=== PATIENT | female | born 1940 | race Hispanic/Latino ===

== ENCOUNTER 2018-01-09 19:13 | Observation (INO) | payer MEDICARE ==
[2018-01-09 20:05] LABS: BASO # 0.15 K/mm3 (0.0-2.0); BASO % 2.8 % (0.0-3.0); EOS # 0.2 (0.0-0.7); EOS % 4.4 % (1.5-5.0); GRAN # 3.16 (1.4-6.5); GRAN % 58.1 % (50.0-68.0); HEMOGLOBIN 10.6 g/dL (12.0-16.0); LYMPH # 1.4 (1.2-3.4); MEAN CELL VOLUME 90.8 fl (80.0-105.0); MEAN CORPUSCULAR HEMOGLOBIN 29.4 pg (25.0-35.0); MEAN CORPUSCULAR HGB CONC 32.4 g/dl (31.0-37.0); MEAN PLATELET VOLUME 8.6 fl (7.0-11.0); MONO # 0.5 (0.1-0.6); MONO % 8.7 % (1.0-6.0); RBC 3.6 10^6/uL (3.5-6.1); RED CELL DISTRIBUTION WIDTH 13.7 % (11.5-14.5); WHITE BLOOD COUNT 5.4 10^3/ul (4.5-11.0)
[2018-01-09 20:14] LABS: ALB/GLOB RATIO 1.7 (1.1-1.8); ALBUMIN 4.7 g/dL (3.0-4.8); CALCIUM 8.7 mg/dL (8.4-10.5)
[2018-01-09] MEDS ORDERED: Sod Polystyrene Sulf 15 gm/60 ml Susp PO STA (20:43)
[2018-01-09] MEDS ORDERED: Iohexol 240 (50 ml) ONE (20:48)
[2018-01-09] MEDS: Sodium Chloride 0.9% 1,000 ML IV SCH (21:00)
--- NOTE | 2018-01-09 21:43 | ED PDOC ---
Arrival/HPI - General Chief Complaint: Abnormal Labs Time Seen by Provider: 01/09/18 19:15 Historian: Patient - History of Present Illness Narrative History of Present Illness (Text): 01/09/18 20:33 77 year old female, whose past medical history includes Hypercholesterolemia and Hypertension, presents to the emergency department complaining of abnormal lab results. Patient was sent by Dr. Thibodeaux for elevated creatinine and potassium. Patient has no physical complaints. Patient denies any fever, chills , chest pain, shortness of breath, abdominal pain, nausea, vomiting, diarrhea, urinary symptoms, back pain, neck pain, headache, dizziness, or any other complaints. Symptom Onset: Gradual Symptom Course: Unchanged Activities at Onset: Light Context: Home Past Medical History - Provider Review Nursing Documentation Reviewed: Yes - Infectious Disease Hx of Infectious Diseases: None - Tetanus Immunization Tetanus Immunization: Unknown - Cardiac Hx Hypotension: Yes - Musculoskeletal/Rheumatological Hx Gout: Yes - Psychiatric Hx Psychophysiologic Disorder: No Hx Depression: No Hx Emotional Abuse: No Hx Physical Abuse: No Hx Substance Use: No - Surgical History Hx Orthopedic Surgery: Yes - Suicidal Assessment Feels Threatened In Home Enviroment: No Family/Social History - Physician Review Nursing Documentation Reviewed: Yes Family/Social History: No Known Family HX Smoking Status: Never Smoked Hx Alcohol Use: No Hx Substance Use: No Hx Substance Use Treatment: No Allergies/Home Meds Allergies/Adverse Reactions: Allergies No Known Allergies Allergy (Verified 07/21/15 14:52) Home Medications: Home Meds Medication Instructions Recorded Confirmed Amlodipine/Valsartan/Hcthiazid 1 tab PO DAILY 01/09/18 01/09/18 [[id number] 5-160-25 mg] Febuxostat [Uloric] 1 tab PO DAILY 01/09/18 01/09/18 Tramadol HCl [Ultram] 1 tab PO PRN PRN 01/09/18 01/09/18 cloNIDine [Catapres] 1 tab PO BID 01/09/18 01/09/18 Review of Systems - Physician Review All systems were reviewed & negative as marked: Yes - Review of Systems Constitutional: absent: Fevers, Other (Chills) Respiratory: absent: SOB Cardiovascular: absent: Chest Pain Gastrointestinal: absent: Abdominal Pain, Diarrhea, Nausea, Vomiting Genitourinary Female: absent: Dysuria, Frequency, Hematuria Musculoskeletal: absent: Back Pain, Neck Pain Neurological: absent: Headache, Dizziness Physical Exam Vital Signs Reviewed: Yes Vital Signs Temp Pulse Resp BP Pulse Ox 01/09/18 21:26 80 14 148/79 99 01/09/18 19:21 97.9 F 92 H 18 150/86 99 Temperature: Afebrile Blood Pressure: Normal Pulse: Regular Respiratory Rate: Normal Appearance: Positive for: Well-Appearing, Non-Toxic, Comfortable Pain Distress: None Mental Status: Positive for: Alert and Oriented X 3 - Systems Exam Head: Present: Atraumatic, Normocephalic Pupils: Present: PERRL Extroacular Muscles: Present: EOMI Conjunctiva: Present: Normal Mouth: Present: Moist Mucous Membranes Neck: Present: Normal Range of Motion Respiratory/Chest: Present: Clear to Auscultation, Good Air Exchange. No: Respiratory Distress, Accessory Muscle Use Cardiovascular: Present: Regular Rate and Rhythm, Normal S1, S2. No: Murmurs Abdomen: No: Tenderness, Distention, Peritoneal Signs Back: Present: Normal Inspection Upper Extremity: Present: Normal Inspection. No: Cyanosis, Edema Lower Extremity: Present: Normal Inspection. No: Edema Neurological: Present: GCS=15, CN II-XII Intact, Speech Normal Skin: Present: Warm, Dry, Normal Color. No: Rashes Psychiatric: Present: Alert, Oriented x 3, Normal Insight, Normal Concentration Medical Decision Making ED Course and Treatment: 01/09/18 20:33 Impression: 77 year old female sent by Dr. Thibodeaux for elevated creatinine and potassium. Plan: -- CT Abd & Pelvis PO Contrast -- EKG -- Labs -- IV Fluids, KayeXalate Susp -- Reassess and disposition Progress Notes: 01/09/18 21:05 EKG: Ordered, reviewed, and independently interpreted the EKG. Rate : 83 BPM Rhythm : NSR Interpretation : Normal axis. Normal intervals. Comparison : No previous EKG for comparison. 01/09/18 20:[address] Thibodeaux and Dr. Pierce Quispe who are aware and agrees with the plan. Reviewed the work up with Dr. Thibodeaux who is requesting CT abdomen with PO Contrast. Patient to be admitted for acute renal renal failure dehydration. EXAM: CT Abdomen and Pelvis Without Intravenous Contrast Dictated and Authenticated by: Jayla Pimentel MD 01/09/2018 10:43 PM IMPRESSION: Gallstones, no ductal dilatation; no acute solid visceral abnormality; diverticulosis without CT findings of diverticulitis; possible left ovarian dermoid Additional nonemergent findings as described above. - Lab Interpretations Lab Results: 01/09/18 19:58 01/09/18 19:58 Lab Results 01/09/18 19:58: Sodium 143, Potassium 5.3 H, Chloride 111 H, Carbon Dioxide 16 L , Anion Gap 22 H, BUN 51 H, Creatinine 2.8 H, Est GFR ( Amer) 20, Est GFR (Non-Af Amer) 16, Random Glucose 111 H, Calcium 8.7, Total Bilirubin 0.4, AST 15, ALT 20, Alkaline Phosphatase 91, Total Protein 7.4, Albumin 4.7, Globulin 2.7, Albumin/Globulin Ratio 1.7 01/09/18 19:58: WBC 5.4, RBC 3.60, Hgb 10.6 L, Hct 32.7 L, MCV 90.8, MCH 29.4, MCHC 32.4, RDW 13.7, Plt Count 325, MPV 8.6, Gran % 58.1, Lymph % (Auto) 26.0, [place] % (Auto) 8.7 H, Eos % (Auto) 4.4, Baso % (Auto) 2.8, Gran # 3.16, Lymph # ( Auto) 1.4, [place] # (Auto) 0.5, Eos # (Auto) 0.2, Baso # (Auto) 0.15 I have reviewed the lab results: Yes - RAD Interpretation Radiology Orders: 01/09/18 20:43 ABD & PELVIS PO CONTRAST ONLY [CT] Stat - EKG Interpretation Interpreted by ED Physician: Yes Type: 12 lead EKG - Medication Orders Current Medication Orders: Sodium Chloride (Sodium Chloride 0.9%) 1,000 mls @ 125 mls/hr IV .Q8H MARIN Last Admin: 01/09/18 21:00 Dose: 125 mls/hr eMAR Start Stop Document 01/09/18 21:00 RG (Rec: 01/09/18 21:23 RG [id number]) Intravenous Solution Start Date 01/09/18 Start Time 21:00 Discontinued Medications Sodium Polystyrene Sulfonate (Kayexalate Susp) 15 gm PO STAT STA Stop: 01/09/18 20:44 Last Admin: 01/09/18 21:04 Dose: 15 gm - Scribe Statement The provider has reviewed the documentation as recorded by the Shawn Sanchez Provider Scribe Attestation: All medical record entries made by the Shermanibjacinto were at my direction and personally dictated by me. I have reviewed the chart and agree that the record accurately reflects my personal performance of the history, physical exam, medical decision making, and the department course for this patient. I have also personally directed, reviewed, and agree with the discharge instructions and disposition. Disposition/Present on Arrival - Present on Arrival Any Indicators Present on Arrival: No History of DVT/PE: No History of Uncontrolled Diabetes: No Urinary Catheter: No History of Decub. Ulcer: No History Surgical Site Infection Following: None - Disposition Have Diagnosis and Disposition been Completed?: Yes Diagnosis: Dehydration, Acute renal failure Disposition: HOSPITALIZED Disposition Time: 20:30 Condition: STABLE
--- NOTE | 2018-01-09 22:43 | CT ---
EXAM: CT Abdomen and Pelvis Without Intravenous Contrast EXAM DATE/TIME: 01/09/2018 8:43 PM CLINICAL HISTORY: 77 years old, female; Pain; Abdominal pain; Acute; Additional info: Difficulty swallowing TECHNIQUE: Axial computed tomography images of the abdomen and pelvis without intravenous contrast. All CT scans at this facility use one or more dose reduction techniques, viz.: automated exposure control; ma/kV adjustment per patient size (including targeted exams where dose is matched to indication; i.e. head); or iterative reconstruction technique. Coronal and sagittal reformatted images were created and reviewed. COMPARISON: There are no prior studies for comparison. FINDINGS: Lung bases: See below. Heart: Heart size is normal. There are coronary artery calcifications. Lung bases are hyperinflated. There is scarring at the lung bases ABDOMEN: Liver: unremarkable Gallbladder and bile ducts: Gallbladder is partially distended. There are small gallstones. Common duct is unremarkable. Pancreas: Pancreas is mildly atrophic. Spleen: unremarkable Adrenals: unremarkable Kidneys and ureters: There is bilateral renal scarring. There is no pelvocaliectasis or ureterectasis. Stomach and bowel: Stomach is distended with contrast and food. Rotation is normal. There is contrast fluid and air throughout much of the small bowel. Terminal ileum is unremarkable. Visualized portion of the appendix is unremarkable.Colon is incompletely distended which limits evaluation.There is diverticulosis. PELVIS: Appendix: See stomach and bowel Bladder: Bladder is partially distended. Reproductive: Uterus is atrophic. There is prominence of both adnexa. There may be a left adnexal dermoid. ABDOMEN and PELVIS: Intraperitoneal space: There is no free air or free fluid. Bones/joints: There are degenerative changes in the osseus structures. Soft tissues: There is a small fat containing umbilical hernia. Vasculature: Clinical phleboliths aorta is mildly tortuous. There are calcifications in the aorta and iliacs. Lymph nodes: unremarkable IMPRESSION: Gallstones, no ductal dilatation; no acute solid visceral abnormality; diverticulosis without CT findings of diverticulitis; possible left ovarian dermoid Additional nonemergent findings as described above.
[2018-01-10 06:06] VITALS: BMI 13.6
[2018-01-10] MEDS: FEBUXOSTAT PO SCH (09:07)
[2018-01-10 11:44] LABS: BASO # 0.13 K/mm3 (0.0-2.0); BASO % 3.1 % (0.0-3.0); EOS # 0.2 (0.0-0.7); EOS % 5.2 % (1.5-5.0); GRAN # 2.44 (1.4-6.5); GRAN % 57.9 % (50.0-68.0); HEMOGLOBIN 10.4 g/dL (12.0-16.0); LYMPH # 1.1 (1.2-3.4); LYMPH % 26.4 % (22.0-35.0); MEAN CELL VOLUME 90.1 fl (80.0-105.0); MEAN CORPUSCULAR HEMOGLOBIN 28.7 pg (25.0-35.0); MEAN CORPUSCULAR HGB CONC 31.9 g/dl (31.0-37.0); MEAN PLATELET VOLUME 8.7 fl (7.0-11.0); MONO # 0.3 (0.1-0.6); MONO % 7.4 % (1.0-6.0); RBC 3.62 10^6/uL (3.5-6.1); RED CELL DISTRIBUTION WIDTH 13.4 % (11.5-14.5); WHITE BLOOD COUNT 4.2 10^3/ul (4.5-11.0)
[2018-01-10 11:57] LABS: ALB/GLOB RATIO 1.5 (1.1-1.8); ALBUMIN 4.2 g/dL (3.0-4.8); CALCIUM 7.8 mg/dL (8.4-10.5)
--- NOTE | 2018-01-10 12:36 | CARD ---
APPROVED REPORT EKG Measurement Heart [id number] <Conclusion> Normal sinus rhyth
[2018-01-10] MEDS ORDERED: Sod Polystyrene Sulf 15 gm/60 ml Susp PO ONE (14:08)
[2018-01-10 18:05] LABS: HEMOGLOBIN 10.5 g/dL (12.0-16.0); MEAN CELL VOLUME 89.7 fl (80.0-105.0); MEAN CORPUSCULAR HEMOGLOBIN 29.3 pg (25.0-35.0); MEAN CORPUSCULAR HGB CONC 32.7 g/dl (31.0-37.0); MEAN PLATELET VOLUME 8.5 fl (7.0-11.0); RBC 3.58 10^6/uL (3.5-6.1); RED CELL DISTRIBUTION WIDTH 13.4 % (11.5-14.5); WHITE BLOOD COUNT 4.1 10^3/ul (4.5-11.0)
[2018-01-10] MEDS: Sodium Chloride 0.9% 1,000 ML IV SCH (18:38)
[2018-01-10 18:47] LABS: URINE BILIRUBIN NEGATIVE (NEGATIVE); URINE BLOOD TRACE-INTACT (NEGATIVE); URINE GLUCOSE (UA) NEGATIVE (NEGATIVE); URINE LEUKOCYTE ESTERASE NEGATIVE Leu/uL (NEGATIVE); URINE PROTEIN 100 mg/dL (<30 mg/dL); URINE UROBILINOGEN 0.2 E.U./dL (<1 E.U./dL)
[2018-01-10 18:50] LABS: URINE APPEARANCE CLEAR (CLEAR); URINE COLOR YELLOW (YELLOW)
[2018-01-10 18:58] LABS: URINE EPITHELIAL CELLS 0 - 2 /hpf (0-5); URINE RBC 0 - 2 /hpf (0-2); URINE WBC NEGATIVE /hpf (0-6)
--- NOTE | 2018-01-10 23:27 | HP ---
DATE OF EXAM: HISTORY OF PRESENT ILLNESS: The patient is a 77-year-old female who was being evaluated by the correction officer, Dr. Thibodeaux, and she was found to have elevated renal functions on her blood work. Therefore, it is recommended she present to the emergency room, which she did not. She is further evaluated and admitted with a diagnosis of acute renal failure. The patient is completely asymptomatic. She denies using any chemical. She denies any urinary symptoms of hematuria, dysuria, frequency, or urgency. PAST MEDICAL HISTORY: The patient has a past medical history positive for hypertension and for gout. SOCIAL HISTORY: She never smoked. She is a nonalcoholic drinker. ALLERGIES: SHE HAS NO KNOWN MEDICAL ALLERGIES. MEDICATIONS: On admission included Uloric one tablet p.o. daily, tramadol 50 mg as needed for pain, clonidine 0.1 mg twice a day, Exforge which is amlodipine 5 mg, valsartan 160 mg, and hydrochlorothiazide 25 mg. PHYSICAL EXAMINATION: GENERAL: The patient is awake, alert, and oriented. VITAL SIGNS: Her blood pressure is 150/86, heart rate is 92 beats per minute, and she is afebrile at 92.9 degrees Fahrenheit. HEAD, EYES, EARS, NOSE AND THROAT: Unremarkable. NECK: Supple with no lymphadenopathy. No goiter. LUNGS: Clear to auscultation and percussion. HEART: Regular. No murmurs are appreciated. ABDOMEN: Soft and nontender with no organomegaly. EXTREMITIES: Free of cyanosis, clubbing, or edema. NEUROLOGICALLY: The patient is awake, alert, and oriented with no focal neurological signs. LABORATORY STUDIES: Reveal the white blood cell count to be 5.4, hemoglobin is 10.6, hematocrit 32.7, platelet count is 325. Sodium is 143, potassium is elevated at 5.3, chloride is high at 111, bicarb is low at 16, blood urea nitrogen is elevated at 51, creatinine is 2.8, nonfasting glucose is 111. EKG shows regular sinus rhythm. The CAT scan of the abdomen shows gallbladder calculi, diverticulosis without diverticulitis. There is a possible left ovarian dermoid cyst. IMPRESSION AND PLAN: So, the patient is admitted with a diagnosis of acute renal failure. She received Kayexalate 15 mg in the emergency room. She is receiving IV normal saline at 125 mL an hour. The patient is to be reevaluated in the morning and laboratory studies to be repeated. Pierce Quispe MD
--- NOTE | 2018-01-11 02:04 | PN ---
DATE: 01/10/2018 DAILY PROGRESS NOTE I would like today's progress note to be read as follows, if you would be so kind. SUBJECTIVE: The patient is a 77-year-old female with a history of high blood pressure and gout, which was treated as an outpatient with clonidine, Exforge and Uloric, who was found to be on acute renal failure with an elevated blood urea nitrogen of 51 and creatinine of 2.8. She was therefore asked to present to the emergency room where she was evaluated and admitted. She received 15 mg of Kayexalate and had IV fluids normal saline running at 125 mL and hour overnight. By the following morning, unfortunately, her labs have not changed as much as expected. Her potassium this morning is 5.1. Blood urea nitrogen is 43 and creatinine is 2.1. The patient is awake, alert and oriented. She is sitting up on a chair. She is totally asymptomatic. So at this point, we will continue with IV fluids at 125 mL an hour. We will treat her with another 30 mg of Kayexalate and we will ask nephrologists, Dr. Currie and Dr. Ca, to evaluate the patient. Urinalysis is ordered and the patient is to be reevaluted in the morning. Pierce Quispe MD
[2018-01-11] MEDS: FEBUXOSTAT PO SCH (09:35)
[2018-01-11 11:53] LABS: HEMOGLOBIN 9.7 g/dL (12.0-16.0); MEAN CORPUSCULAR HEMOGLOBIN 29.5 pg (25.0-35.0); MEAN CORPUSCULAR HGB CONC 32.8 g/dl (31.0-37.0); MEAN PLATELET VOLUME 8.5 fl (7.0-11.0); RBC 3.29 10^6/uL (3.5-6.1); RED CELL DISTRIBUTION WIDTH 13.5 % (11.5-14.5); WHITE BLOOD COUNT 4.5 10^3/ul (4.5-11.0)
[2018-01-11 12:06] LABS: IRON 71 ug/dL (45-180)
--- NOTE | 2018-01-11 12:06 | US ---
PROCEDURE: Ultrasound of the Kidneys HISTORY: Kidney size and r/o hydronephrosis COMPARISON: Comparison made with CT scan abdomen pelvis 01/09/2018. TECHNIQUE: Sonogram of the kidneys. FINDINGS: RIGHT KIDNEY: Measures: 9.7 x 4.8 x 5.5 cm. Normal in size, contour and echogenicity. No stone, solid mass lesion or hydronephrosis visualized. LEFT KIDNEY: Measures: 9.0 x 3.7 x 4.8 cm. Normal in size and echogenicity. Localized cortical volume loss posterolateral aspect upper/midpole left kidney likely related to prior inflammation. Clinical correlation recommended. These changes are seen to better advantage on prior CT scan No stone, solid mass lesion or hydronephrosis visualized. . OTHER FINDINGS: None. IMPRESSION: No evidence of nephrolithiasis or hydronephrosis. No obvious renal masses or collections. . Localized cortical volume loss posterolateral aspect upper/midpole left kidney likely related to prior inflammation. Clinical correlation recommended. Changes are seen to better advantage on prior CT scan
[2018-01-11 12:15] LABS: % IRON SATURATION 28 % (20-55); TOTAL IRON BINDING CAPACITY 256 ug/dL (265-497)
[2018-01-11] MEDS: Sodium Bicarbonate 8.4% 50 MEQ in Dextrose 5%/0.45% NS 1,000 ML IV SCH ×2 (12:28→23:20)
[2018-01-11 17:09] LABS: FERRITIN 48.2 ng/mL
[2018-01-11 17:39] LABS: FOLATE 12.8 ng/mL
--- NOTE | 2018-01-11 20:59 | CON ---
DATE: 01/11/2018 The patient admitted for Dr. Pierce Quispe. REFERRING PHYSICIAN: Pierce Quispe MD. REASON FOR CONSULTATION: Evaluation of a patient unknown to me who presents with an elevated BUN and creatinine in the setting of a 2-week history of diarrhea. HISTORY OF PRESENT ILLNESS: The patient is a 77-year-old white female with a long history of hypertension, perhaps hypertensive nephrosclerosis, history of gout, history of anemia who presents with a 2-week history of diarrhea. The patient had been evaluated by her buffing wheel former automatic. Labs were done which showed an elevated BUN and creatinine with mild hyperkalemia and the patient is referred to the hospital for evaluation. By history, the patient states that she was told that she had weakness in her kidney dating back at least 1-2 years. Of note, an abdominal CT scan done on the day of admission, showed bilateral renal scarring. The patient states that she did have discussions with her doctors in the past about the weakness in her kidney. She states that the diarrhea had resolved. She states that she did have a colonoscopy. We were asked to evaluate the patient for elevated BUN and creatinine. Her BUN on admission was 51 with a creatinine of 2.8. We do not know what her baseline is. Today's BUN is 43 with a creatinine of 2.1, on IV fluid hydration. With hydration, her hemoglobin has dropped from 10.6 down to 10.4-10.5 range. Her urinalysis shows 2+ protein. 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 MEDICATIONS AT HOME: Include that of clonidine, Ultram, amlodipine with valsartan and hydrochlorothiazide, Uloric. ALLERGIES: NO KNOWN ALLERGIES TO MEDICATIONS. CURRENT MEDICATIONS IN HOSPITAL: Include that of clonidine; Uloric; hydrochlorothiazide, which will be discontinued; Norvasc; normal saline 125 mL an hour; and Ultram. SOCIAL HISTORY: Past history of cigarette smoking. The patient has not been smoking for many years. No history of alcohol use. FAMILY HISTORY: Father of reasons unknown to the patient. Mother of complications of COPD. REVIEW OF SYSTEMS: GENERAL: The patient states appetite and weight have been stable. HEENT: Denies any hearing or visual problems. PULMONARY: No history of shortness of breath, COPD, asthma, bronchitis, emphysema, or pneumonia. CARDIAC: No history of ASHD. GASTROINTESTINAL: History of diarrhea of 2 weeks' duration. No history of abdominal pain, nausea, vomiting, or constipation. GENITOURINARY: No history of urinary tract infections. GYNECOLOGIC: Postmenopausal. ENDOCRINE: No history of diabetes. MUSCULOSKELETAL: Positive history of gout. NEUROLOGIC: No history of CVA, TIA, seizures, or syncope. HEMATOLOGIC-ONCOLOGIC: History of anemia as noted above. PSYCHIATRIC: History is negative. PHYSICAL EXAMINATION: GENERAL: The patient is currently seen on 2R. She is comfortable lying supine in bed. Her son is in the room. VITAL SIGNS: Blood pressure is ranging from 143-164 systolic with diastolics ranging from 66-74. Temperature 98.1, respiratory rate is 20 with a pulse of 63. HEENT: Shows her be normocephalic, atraumatic. Conjunctiva are pink. Sclerae are nonicteric. Pupils are equal, reactive to light and accommodation. Extraocular muscles are intact. Posterior pharynx is normal. NECK: Supple. No neck vein distention. No thyromegaly. No lymphadenopathy. No bruits. CHEST: Clear to auscultation and percussion. No rales, rhonchi, or wheezing. CARDIOVASCULAR: Shows a regular rate and rhythm without audible murmurs, rubs, or gallops. ABDOMEN: Soft. Bowel sounds normal. No rebound, guarding, or masses. BACK: No CVAT. No spinal tenderness. EXTREMITIES: Show no lower extremity cyanosis, clubbing, or edema. Distal lower extremity pulses are 1 to 2+. NEUROLOGIC: Shows her to be alert, oriented x3 with no gross focal motor or sensory deficits noted. LABORATORY DATA AND IMAGING: Admitting EKG showed a normal sinus rhythm. Admitting urinalysis showed 2+ protein. Admitting abdominal CT scan, kidneys showed bilateral renal scarring. Gallstones were present. No evidence for diverticulitis. Positive diverticulosis. CBC: White blood cell count 4.1, hemoglobin 10.5 with a platelet count of 282,000. Chemistries showed a sodium of 147; potassium was 5.3, today it is 5.1; chloride 115 with a CO2 of 18. BUN is 43 with a creatinine of 2.1. Glucose 69. Calcium 7.8 with an albumin of 4.2. Today's labs are pending. Urine showed 2+ protein. Otherwise unremarkable. ASSESSMENT: 1. 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 By patient's history and by CT scan findings, it appears that the patient has a degree of chronic renal disease. She has bilateral renal scarring. She did have a discussion with her doctors in the last year about weakness in her kidney. The patient avoids all anti-inflammatories. Of note, she remains on an angiotensin receptor chucky and a diuretic in the outpatient setting for blood pressure control. Discussed with the patient and her son in detail. I will obtain a renal ultrasound to measure her kidney size. I will obtain a renal artery Doppler study in light of her history of hypertension and chronic kidney disease to rule out renal artery stenosis. I will obtain 24-hour urines for creatinine clearance and protein. It would be very important to try and obtain from the outpatient labs her baseline BUN and creatinine, I will discuss this with Dr. Quispe. The patient and her son do not remember what her outpatient BUN and creatinine were. 2. History of hypertension. In light of her borderline hyperkalemia, we will hold an angiotensin receptor chucky at this point in time and I will hold hydrochlorothiazide as the patient remains on IV fluid hydration. She can continue calcium channel chucky therapy and we can use clonidine on a p.r.n. basis to keep her blood pressure controlled. 3. History of gout. The patient will continue on Uloric. We will check a uric acid level. 4. History of anemia. We will check her iron saturations, B12, and folate. If hemoglobin drops below 10, perhaps Aranesp administration together with oral iron supplements. 5. History of diarrhea. The patient had been evaluated by GI. This seems to have resolved. Her son thinks that she eats spoiled food that she keeps in refrigerator for long periods of time. Apparently, the patient had a recent GI workup, which according to the patient and her son were negative. PLAN: 1. A 24-hour urine for creatinine clearance and protein. 2. Renal ultrasound ordered. 3. Continue renal diet, low potassium diet. 4. Use calcium channel chucky therapy together with clonidine for blood pressure control. Hold the angiotensin receptor chucky until she returns to baseline levels and potassium level improves. 5. Continue IV fluid hydration. Her CO2 level has dropped down to 16-18. I will add sodium bicarbonate to the IV fluids instead of chloride as this will likely help improve her potassium level and neutralize her metabolic acidosis. 6. Continue to follow daily labs. 7. Discussed with the patient and her son in detail. 8. Close renal followup during hospitalization and perhaps renal followup in the outpatient setting. Thank you for letting me partake and share in the care of your patient. Casimiro Ca MD MTDD
[2018-01-12 07:07] LABS: HEMOGLOBIN 9.7 g/dL (12.0-16.0); MEAN CELL VOLUME 89.4 fl (80.0-105.0); MEAN CORPUSCULAR HEMOGLOBIN 29.4 pg (25.0-35.0); MEAN CORPUSCULAR HGB CONC 32.9 g/dl (31.0-37.0); MEAN PLATELET VOLUME 8.5 fl (7.0-11.0); RBC 3.3 10^6/uL (3.5-6.1); RED CELL DISTRIBUTION WIDTH 13.4 % (11.5-14.5); WHITE BLOOD COUNT 3.8 10^3/ul (4.5-11.0)
[2018-01-12 07:38] LABS: ALB/GLOB RATIO 1.3 (1.1-1.8); ALBUMIN 3.4 g/dL (3.0-4.8)
[2018-01-12] MEDS: FEBUXOSTAT PO SCH (09:40)
[2018-01-12 11:42] LABS: URINE CREATININE 55.7 mg/dL
[2018-01-12] MEDS: Pantoprazole 40 mg EC Tab PO SCH (11:54)
--- NOTE | 2018-01-12 15:42 | PN ---
DATE: 01/12/2018 SUBJECTIVE: The patient is currently receiving IV fluid hydration. Creatinine is down to 1.5. The patient is asking me if she can go home. The 24-hour urine was completed. Renal ultrasound was completed. We are waiting to see whether or not creatinine 1.5 is her baseline level. Her diarrhea apparently has resolved. MEDICATIONS: Medication list reviewed. The patient is currently on clonidine, Uloric, Norvasc, Protonix, IV fluid with sodium bicarbonate 80 mL an hour and Ultram. She is presently off valsartan and hydrochlorothiazide. OBJECTIVE: INTAKE/OUTPUT: Intake 420+, output 300. VITAL SIGNS: Blood pressure is ranging from 152 to 168 systolic, diastolic is ranging from 76 to 81. Pulse 75, temperature 98, respiratory rate 18. HEENT: Exam shows her be normocephalic, atraumatic. Conjunctivae are pale. Sclerae nonicteric. NECK: Supple. No neck vein distention. CHEST: Clear to auscultation and percussion. No rales, rhonchi or wheezing. CARDIOVASCULAR: Shows a regular rate and rhythm without audible murmurs, rubs or gallops. ABDOMEN: Soft. Bowel sounds normal. EXTREMITIES: Show no cyanosis, clubbing or edema. LABORATORY DATA AND IMAGING DATA: BUN is down to 24 from a high of 51. Creatinine is down to 1.5 from a high of 2.8. This is with resolution of her diarrhea and hydration. Electrolytes are normal. CO2 is improved to 21. Calcium 8, corrects to normal for an albumin of 3.4. Phosphorus and magnesium level are normal. Iron saturations are 28%. B12 level is low at 202. Folic acid level is normal at 12.8. The 24-hour urine is done, showed a creatinine clearance of 22 mL per minute consistent with chronic kidney disease stage IV. Urine protein was 1085 mg. Her renal ultrasound was done which showed decreased cortex of the left kidney, perhaps secondary to previous inflammation and scarring. Right kidney was 9.7 cm, left kidney was 9 cm. No hydronephrosis. ASSESSMENT: 1. Acute renal failure, likely resolved. She probably has underlying chronic kidney disease stage III/IV. Perhaps, the 24-hour urine was slight under collection. She does have apparent scarring in her left kidney, perhaps from previous inflammation. It is unclear to me what her baseline creatinine is if she is at her baseline creatinine of 1.5. With resolution of the diarrhea, IV fluids may be discontinued. The patient may be restarted back on her outpatient blood pressure medication. I did order renal artery Doppler study, which will likely not be done today. 2. History of hypertension, borderline control. The patient can have her angiotensin receptor chucky and diuretic restarted as long as her diarrhea has resolved. She may continue on clonidine and amlodipine as well. 3. History of gout, no recent attacks. The patient will continue Uloric. 4. History of anemia. Of note, B12 level is low. The patient should be started on B12 supplement. This can be given in the outpatient setting by Dr. Quispe. 5. History of diarrhea, this apparently has resolved. The patient apparently had a GI workup in the outpatient setting. PLAN: 1. We will need to try and discuss with Dr. Quispe what her baseline BUN and creatinine are. If her baseline BUN and creatinine are in the 20s and 1.5, IV fluids may be discontinued and the patient may be discharged home on present blood pressure medication. 2. I would add back the Exforge/HCT, that is amlodipine/valsartan/hydrochlorothiazide. The patient can continue clonidine. 3. The patient should have renal followup in the outpatient setting in light of her chronic kidney disease stage III. 4. The patient should be started on B12 supplements. 5. P.r.n. Aranesp in the outpatient setting if hemoglobin continues to trend lower. Perhaps slight drop in her hemoglobin is secondary to hemodilution from IV fluid hydration. Casimiro Ca MD
[2018-01-13 03:32] VITALS: RESP 20
[2018-01-13] MEDS: Pantoprazole 40 mg EC Tab PO SCH (05:53)
[2018-01-13 07:02] LABS: HEMOGLOBIN 9.9 g/dL (12.0-16.0); MEAN CELL VOLUME 88.4 fl (80.0-105.0); MEAN CORPUSCULAR HEMOGLOBIN 28.6 pg (25.0-35.0); MEAN CORPUSCULAR HGB CONC 32.4 g/dl (31.0-37.0); MEAN PLATELET VOLUME 8.8 fl (7.0-11.0); RBC 3.46 10^6/uL (3.5-6.1); RED CELL DISTRIBUTION WIDTH 13.5 % (11.5-14.5)
[2018-01-13 07:15] VITALS: BP 153/73; PULSE 65; TEMP 98.6; O2SAT 97
[2018-01-13 07:20] LABS: ALB/GLOB RATIO 1.4 (1.1-1.8); ALBUMIN 3.6 g/dL (3.0-4.8)
[2018-01-13 07:33] LABS: WHITE BLOOD COUNT 2.8 10^3/ul (4.5-11.0)
--- NOTE | 2018-01-14 06:21 | DS ---
I would like the discharge summary to be read as follows, if you would be so kind. HISTORY OF PRESENT ILLNESS: The patient is a 77-year-old female with a history of high blood pressure and gout. She was being treated with clonidine, Exforge, and Uloric and was found to be in acute renal failure with an elevated blood urea nitrogen of 51 and creatinine of 2.8 during a regular followup visit with her jury consultant, Dr. Thibodeaux. It was requested that she present to the emergency room, which she did and was admitted. She received Kayexalate for her hyperkalemia. She also received IV fluids normal saline at 125 mL an hour. She slowly responded to this. We asked Dr. Currie and Dr. Ca, the nephrologists to consult. Her IV fluid was changed to sodium bicarb at 80 mL an hour and on this, the patient responded very well. Through the whole time, she is completely asymptomatic. She was awake, alert, and oriented and her physical exam was unremarkable. On the morning of the , the patient had a blood pressure of 163/91, heart rate of 64. She was afebrile. She was awake, alert, and oriented. As mentioned above, physical exam was unremarkable. LABORATORY STUDIES: This morning showed the white blood cells to be 3.8, hemoglobin and hematocrit are 9.7 and 29.5 respectively. Her potassium is 4.3, sodium is 146, blood urea nitrogen is 24, creatinine is 1.5, and glucose is 95. We will be discharging the patient in the morning. Discharge order was written. Consultation from Dr. Ca is greatly appreciated. She will be following up with him on post discharge with the results of 24-hour urine. FINAL DIAGNOSES: 1. Acute renal failure on top of chronic kidney disease stage II/III. 2. Hypertension. 3. History of gout. Pierce Quispe MD
== END 2018-01-13 09:29 | disposition home or self-care (01) ==
LOC: ED 19:13 → ERH 20:44 → 2RSO 23:01
PROVIDERS: ADMIT Internal Medicine; ATTEND Internal Medicine
DX: N17.9 Acute kidney failure, unspecified (principal); N18.3 Chronic kidney disease, stage 3 (moderate); I12.9 Hypertensive chronic kidney disease with stage 1 through stage 4 chronic kidney disease, or unspecified chronic kidney disease; E86.0 Dehydration; E87.5 Hyperkalemia; E78.00 Pure hypercholesterolemia, unspecified; D64.9 Anemia, unspecified; R19.7 Diarrhea, unspecified; K80.20 Calculus of gallbladder without cholecystitis without obstruction; M10.9 Gout, unspecified; Z87.891 Personal history of nicotine dependence
CPT/HCPCS: 36415; 74176; 76770; 80048; 80053; 81001; 82575; 82607; 82728; 82746; 83540; 83550; 83735; 84100; 84156; 85025; 85027; 93005; 99285; G0378; J7030; J7042; Q9966

== ENCOUNTER 2018-03-20 15:30 | Inpatient (IN) | payer MEDICARE, OTHER ==
[2018-03-20 15:39] VITALS: BMI 30.8
[2018-03-20] MEDS ORDERED: Sodium Chloride 0.9% 500 ML IV STA (16:02)
--- NOTE | 2018-03-20 16:05 | ED PDOC ---
Arrival/HPI - General Chief Complaint: GI Problem Time Seen by Provider: 03/20/18 15:45 Historian: Patient, Family - History of Present Illness Narrative History of Present Illness (Text): 03/20/18 16:01 A 77 year old female, whose past medical history includes chronic kidney disease , presents to the emergency department complaining of fever, chills, and weakness for the past 5 days. Patient reports also experiencing fatigue, shakiness, and intermittent nausea. States she visited PMD and was prescribed medications including flagyl for some "upset stomach" and nausea, which she had no relief. She called her PMD 2 days ago and if pain persisted up until today, patient was to go to the hospital for evaluation. Patient denies any chest pain , shortness of breath, cough, abdominal pain, diarrhea, any urinary symptoms, or any other complaints at this time aside from fatigue. Denies bloody or dark urine or stool. PMD: Dr. Tj Espinoza 03/24/18 07:42 Time/Duration: < week (5 days) Symptom Onset: Sudden Symptom Course: Unchanged Past Medical History - Provider Review Nursing Documentation Reviewed: Yes - Infectious Disease Hx of Infectious Diseases: None - Tetanus Immunization Tetanus Immunization: Unknown - Cardiac Hx Hypertension: Yes Other/Comment: hypotension - Musculoskeletal/Rheumatological Hx Falls: No Hx Gout: Yes Other/Comment: hyperuricemia - Gastrointestinal Hx Gastroesophageal Reflux: Yes - Psychiatric Hx Psychophysiologic Disorder: No Hx Depression: No Hx Emotional Abuse: No Hx Physical Abuse: No Hx Substance Use: No - Surgical History Hx Orthopedic Surgery: Yes Other/Comment: R leg surgery - Suicidal Assessment Feels Threatened In Home Enviroment: No Family/Social History - Physician Review Nursing Documentation Reviewed: Yes Family/Social History: No Known Family HX Smoking Status: Never Smoked Hx Alcohol Use: No Hx Substance Use: No Hx Substance Use Treatment: No Allergies/Home Meds Allergies/Adverse Reactions: Allergies No Known Allergies Allergy (Verified 07/21/15 14:52) Home Medications: Home Meds Medication Instructions Recorded Confirmed Febuxostat [Uloric] 1 tab PO DAILY 01/09/18 03/20/18 Tramadol HCl [Ultram] 1 tab PO PRN PRN 01/09/18 03/20/18 cloNIDine [Catapres] 1 tab PO BID 01/09/18 03/20/18 Ondansetron ODT [Zofran ODT] 1 tab PO PRN PRN 03/20/18 03/20/18 amLODIPine [Norvasc] 1 tab PO DAILY 03/20/18 03/20/18 metroNIDAZOLE [Flagyl] 1 tab PO TID 03/20/18 03/20/18 Review of Systems - Review of Systems Constitutional: Fevers, Night Sweats Respiratory: absent: SOB, Cough Cardiovascular: absent: Chest Pain Gastrointestinal: Nausea (intermittent). absent: Abdominal Pain, Diarrhea Genitourinary Female: absent: Dysuria, Frequency, Hematuria, Urine Output Changes Neurological: absent: Dizziness, Focal Weakness Hemo/Lymphatic: absent: Easy Bleeding Physical Exam - Physical Exam Narrative Physical Exam (Text): Head: Atraumatic. Normocephalic. Eyes: PERRL. EOMI. Conjunctivae are not pale. ENT: Mucous membranes are moist and intact. Oropharynx is clear and symmetric. Neck: Supple. Full ROM. No JVD. No lymphadenopathy. Cardiovascular: Regular rate. Regular rhythm. No murmurs, rubs, or gallops. Distal pulses are 2+ and symmetric. Pulmonary/Chest: No evidence of respiratory distress. Clear to auscultation bilaterally. No wheezing, rales or rhonchi. Abdominal: Soft and non-distended. There is no tenderness. No rebound, guarding, or rigidity. No organomegaly. Good bowel sounds. Back: No CVA tenderness. Extremities: No edema. No cyanosis. No clubbing. Full range of motion in all extremities. No calf tenderness. Skin: Skin is warm and dry. No petechiae. No purpura. Chronic skin lesion to right blanco with no surrounding erythema or edema. Neurological: Alert, awake, and oriented. Motor and sensory exam intact. No meningeal signs. Psychiatric: Good eye contact. Normal interaction, affect, and behavior. Vital Signs Reviewed: Yes Vital Signs Temp Pulse Resp BP Pulse Ox 03/20/18 19:26 99.1 F 03/20/18 17:26 100.3 F H 03/20/18 15:45 100.3 F H 106 H 18 157/88 H 97 Temperature: Febrile Pulse: Regular Appearance: Positive for: Non-Toxic Pain Distress: Mild Mental Status: Positive for: Alert and Oriented X 3 Medical Decision Making ED Course and Treatment: 03/20/18 16:04 Impression: 77 year old female with fever, chills, intermittent nausea, and weakness. Plan: -- EKG -- Labs -- Urine Culture -- Blood Culture -- Venous Blood Gas -- IV Fluids -- Urinalysis -- Reassess and disposition Prior Visits: Notes and results from previous visits were reviewed. Patient was last seen here in the emergency room on 01/09/2018 for abnormal lab results. Patient was admitted. Progress Notes: 03/20/18 18:57 Upon re-examination, patient is febrile, although there is no obvious source noted. Lactate currently at 0.9 and patient is not hypotensive/tachycardic. EKG shows to be NSR @ 60 BPM, with no ST-elevations and no ischemic changes. Creatinine is elevated to 3.1. There is a notable wound to right foot, no cellulitic. Exhibits no cough or any respiratory distress. Urinalysis pending at this time. Patient will be admitted for acute renal failure and evaluation of fevers. Patient accepted by Dr. Pierce Espinoza. 03/20/18 20:04 Nursing staff reviewed BNP with PMD and nursing and PMD request patient be admitted to telemetry based on BNP elevation. Patient with no chest pain or shortness of breath. Pulse ox 99%. 03/20/18 20:22 Bun creatinine and co2 reviewed with PMD. UTI noted. Patient started on iv antibiotics. Fever improved. - Lab Interpretations Microbiology Results: Microbiology Results 03/20/18 16:16 Blood Blood Culture - Preliminary NO GROWTH AFTER 3 DAYS 03/20/18 15:45 Blood Blood Culture - Preliminary NO GROWTH AFTER 3 DAYS Lab Results: 03/20/18 15:45 03/20/18 15:45 Lab Results 03/20/18 15:45: Sodium 135, Chloride 106, Potassium 4.4, Carbon Dioxide 15 L, Anion Gap 19, BUN 46 H, Creatinine 3.1 H, Est GFR ( Amer) 18, Est GFR ( Non-Af Amer) 15, Random Glucose 103, Calcium 8.6, Total Bilirubin 0.6, AST 30, ALT 53, Alkaline Phosphatase 149 H D, Lactate Dehydrogenase 489, Total Creatine Kinase 131, Troponin I < 0.01, NT-Pro-B Natriuret Pep 14487 H, Total Protein 7.1 , Albumin 4.0, Globulin 3.2, Albumin/Globulin Ratio 1.3 08/03/18 15:45: pO2 106 H, VBG pH 7.31 L, VBG pCO2 31.0 L, VBG HCO3 15.6 L, VBG Total CO2 16.6 L, VBG O2 Sat (Calc) 96.8 H, VBG Base Excess -9.4 L, VBG Potassium 4.5, Sodium 133.0, Chloride 105.0, Glucose 106 H, Lactate 0.9, FiO2 21.0, Venous Blood Potassium 4.5 03/20/18 15:45: PT 12.8 H, INR 1.12, APTT 34.6 03/20/18 15:45: WBC 8.8 D, RBC 3.28 L, Hgb 9.4 L, Hct 28.3 L, MCV 86.3, MCH 28.7, MCHC 33.2, RDW 13.6, Plt Count 278, MPV 8.8, Gran % 78.8 H, Lymph % (Auto ) 10.9 L, Guadalupe % (Auto) 9.0 H, Eos % (Auto) 0.6 L, Baso % (Auto) 0.7, Gran # 6.96 H, Lymph # (Auto) 1.0 L, Guadalupe # (Auto) 0.8 H, Eos # (Auto) 0.1, Baso # ( Auto) 0.06 - RAD Interpretation Radiology Orders: 03/20/18 17:21 CHEST PORTABLE [RAD] Stat - Medication Orders Current Medication Orders: Amlodipine Besylate (Norvasc) 10 mg PO DAILY [facility] Last Admin: 03/23/18 10:35 Dose: 10 mg MAR Blood Pressure Document 03/23/18 10:35 EDDIE (Rec: 03/23/18 10:36 EDDIE [id number]) Blood Pressure Blood Pressure (100/60-150/90) 159/72 Clonidine HCl (Catapres) 0.1 mg PO BID [facility] Last Admin: 03/23/18 18:48 Dose: 0.1 mg Famotidine (Pepcid) 40 mg PO HS [facility] Last Admin: 03/23/18 21:49 Dose: 40 mg Heparin Sodium (Porcine) (Heparin) 5,000 units SC Q8 [facility] PRN Reason: Protocol Last Admin: 03/24/18 05:24 Dose: 5,000 units Subcutaneous Administrations Document 03/24/18 05:24 TTC (Rec: 03/24/18 05:25 TTC [id number] Charges for Administration # of Subcutaneous Administrations 1 Sodium Bicarbonate 50 meq/ (Dextrose/Sodium Chloride) 1,050 mls @ 80 mls/hr IV .Q13H8M [facility] Last Admin: 03/24/18 05:25 Dose: 80 mls/hr eMAR Start Stop Document 03/24/18 05:25 TTC (Rec: 03/24/18 05:25 TTC [facility] [id number] Intravenous Solution Start Date 03/24/18 Start Time 05:25 Iron Sucrose 200 mg/ Sodium (Chloride) 110 mls @ 110 mls/hr IVPB DAILY [facility] Stop: 03/27/18 10:59 Last Admin: 03/23/18 15:49 Dose: 110 mls/hr eMAR Start Stop Document 03/23/18 15:49 [email or web address] (Rec: 03/23/18 15:50 EDDIE [id number]) Intravenous Solution Start Date 03/23/18 Start Time 15:49 End Date 03/23/18 End time 16:49 Total Infusion Time 60 Levofloxacin (Levaquin) 250 mg PO Q48H [facility] Magnesium Oxide (Mag-Ox) 400 mg PO DAILY [facility] Metoprolol Tartrate (Lopressor) 50 mg PO BID [facility] Last Admin: 03/23/18 18:51 Dose: 50 mg MAR Pulse and Blood Pressure Document 03/23/18 18:51 OWUSR (Rec: 03/23/18 18:52 OWUSR [id number]) Pulse Pulse Rate (60-90) 97 Blood Pressure Blood Pressure (100/60-150/90) 151/87 Home Med - Febuxostat [Uloric] 1 Tab 1 tab PO DAILY [facility] Last Admin: 03/23/18 11:56 Dose: Ondansetron HCl (Zofran Odt) 4 mg PO QID PRN PRN Reason: NAUSEA/VOMITING Polysaccharide Iron Complex (Ferrex-150) 150 mg PO DAILY [facility] Last Admin: 03/23/18 10:35 Dose: 150 mg Tramadol HCl (Ultram) 50 mg PO BID PRN PRN Reason: Pain, moderate (4-7) Discontinued Medications Acetaminophen (Tylenol 325mg Tab) 650 mg PO ONCE STA Stop: 03/20/18 16:53 Last Admin: 03/20/18 17:26 Dose: 650 mg MAR Pain/Vitals Document 03/20/18 17:26 MS (Rec: 03/20/18 17:27 [place] [facility] [id number][place] Pain Reassessment Is This A Pain ReAssessment? No Sleep Is patient sleeping during reassessment? No Presence of Pain Presence of Pain No Vitals Temperature (97.6 F-99.6 F) 100.3 F Temperature Source Oral Acetaminophen (Tylenol 325mg Tab) 650 mg PO ONCE STA Stop: 03/21/18 01:12 Last Admin: 03/21/18 01:17 Dose: 650 mg MAR Pain/Vitals Document 03/21/18 01:17 BK (Rec: 03/21/18 01:17 BK [id number]) Vitals Temperature (97.6 F-99.6 F) 100.7 F Temperature Source Oral Darbepoetin Raheem (Aranesp) 60 mcg SC ONCE ONE Stop: 03/22/18 10:01 Last Admin: 03/22/18 11:30 Dose: 60 mcg Subcutaneous Administrations Document 03/22/18 11:30 [email or web address] (Rec: 03/22/18 18:22 [id number] [facility] [id number][place] Injection Site MAR Injection Site Right Abdomen Charges for Administration # of Subcutaneous Administrations 1 Sodium Chloride (Sodium Chloride 0.9%) 500 mls @ 1,000 mls/hr IV .Q30M STA Stop: 03/20/18 16:31 Last Admin: 03/20/18 16:25 Dose: 1,000 mls/hr eMAR Start Stop Document 03/20/18 16:25 MS (Rec: 03/20/18 16:25 MS [facility] [place][id number][place] Intravenous Solution Start Date 03/20/18 Start Time 16:25 End Date 03/20/18 End time 16:55 Total Infusion Time 30 Ceftriaxone Sodium (Rocephin 1 Gram Ivpb) 1 gm in 100 mls @ 200 mls/hr IVPB ONCE STA PRN Reason: Protocol Stop: 03/20/18 19:48 Last Admin: 03/20/18 19:49 Dose: 200 mls/hr eMAR Start Stop Document 03/20/18 19:49 MS (Rec: 03/20/18 19:49 MS [facility] [place][id number][place] Intravenous Solution Start Date 03/20/18 Start Time 19:49 End Date 03/20/18 End time 20:19 Total Infusion Time 30 Levofloxacin/Dextrose (Levaquin 500mg) 500 mg in 100 mls @ 100 mls/hr IVPB DAILY [facility] PRN Reason: Protocol Last Admin: 03/23/18 10:36 Dose: 100 mls/hr eMAR Start Stop Document 03/23/18 10:36 EDDIE (Rec: 03/23/18 10:37 EDDIE [id number]) Intravenous Solution Start Date 03/23/18 Start Time 10:37 End Date 03/23/18 End time 11:37 Total Infusion Time 60 diltiaZEM IVPB 100mg in NS (Cardizem 100mg In Ns) 100 mls @ 5 mls/hr IV .Q20H [facility] PRN Reason: 5 MG/HR Last Admin: 03/22/18 13:00 Dose: Magnesium 2 gm/50 ml NS (Magnesium Sulfate 2 Gm/50 Ml Ns) 2 gm in 50 mls @ 50 mls/hr IVPB ONCE ONE Stop: 03/23/18 12:16 Last Admin: 03/23/18 13:30 Dose: 50 mls/hr eMAR Start Stop Document 03/23/18 13:30 EDDIE (Rec: 03/23/18 13:31 EDDIE [id number]) Intravenous Solution Start Date 03/23/18 Start Time 13:30 End Date 03/23/18 End time 14:30 Total Infusion Time 60 Magnesium Oxide (Mag-Ox) 400 mg PO BID [facility] Metoprolol Tartrate (Lopressor) 25 mg PO BID [facility] Last Admin: 03/23/18 10:35 Dose: 25 mg MAR Pulse and Blood Pressure Document 03/23/18 10:35 EDDIE (Rec: 03/23/18 10:35 EDDIE [id number]) Pulse Pulse Rate (60-90) 92 Blood Pressure Blood Pressure (100/60-150/90) 159/77 - Scribe Statement The provider has reviewed the documentation as recorded by the Shermanibjacinto Rosa Provider Scribe Provider Scribe Attestation: All medical record entries made by the Scribe were at my direction and personally dictated by me. I have reviewed the chart and agree that the record accurately reflects my personal performance of the history, physical exam, medical decision making, and the department course for this patient. I have also personally directed, reviewed, and agree with the discharge instructions and disposition. Disposition/Present on Arrival - Present on Arrival Any Indicators Present on Arrival: No History of DVT/PE: No History of Uncontrolled Diabetes: No Urinary Catheter: No History of Decub. Ulcer: No History Surgical Site Infection Following: None - Disposition Have Diagnosis and Disposition been Completed?: Yes Diagnosis: Acute renal failure, Fever, UTI (urinary tract infection), Elevated brain natriuretic peptide (BNP) level Disposition: HOSPITALIZED Disposition Time: 17:00 Patient Plan: Admission Patient Problems: Current Active Problems Problem Status Onset Acute renal failure Acute Fever Acute UTI (urinary tract infection) Acute Condition: FAIR
[2018-03-20 16:36] LABS: BASO # 0.06 K/mm3 (0.0-2.0); BASO % 0.7 % (0.0-3.0); EOS # 0.1 (0.0-0.7); EOS % 0.6 % (1.5-5.0); GRAN # 6.96 (1.4-6.5); GRAN % 78.8 % (50.0-68.0); HEMOGLOBIN 9.4 g/dL (12.0-16.0); LYMPH % 10.9 % (22.0-35.0); MEAN CELL VOLUME 86.3 fl (80.0-105.0); MEAN CORPUSCULAR HEMOGLOBIN 28.7 pg (25.0-35.0); MEAN CORPUSCULAR HGB CONC 33.2 g/dl (31.0-37.0); MEAN PLATELET VOLUME 8.8 fl (7.0-11.0); MONO # 0.8 (0.1-0.6); RBC 3.28 10^6/uL (3.5-6.1); RED CELL DISTRIBUTION WIDTH 13.6 % (11.5-14.5); VENOUS BLOOD GAS BASE EXCESS -9.4 mmol/L (0.0-2.0); VENOUS BLOOD GAS PO2 106 mm/Hg (30-55); VENOUS BLOOD PH 7.31 (7.32-7.43); WHITE BLOOD COUNT 8.8 10^3/ul (4.5-11.0)
[2018-03-20 16:41] LABS: INR 1.12; PROTHROMBIN TIME 12.8 SECONDS (9.4-12.5)
[2018-03-20 16:44] LABS: PARTIAL THROMBOPLASTIN TIME 34.6 Seconds (25.1-36.5)
[2018-03-20 16:50] LABS: ALB/GLOB RATIO 1.3 (1.1-1.8); ALT/SGPT 53 U/L (7-56); AST/SGOT 30 U/L (14-36); BLOOD UREA NITROGEN 46 mg/dL (7-21); CALCIUM 8.6 mg/dL (8.4-10.5); GFR AFRICAN-AMERICAN 18; GFR NON-AFRICAN AMERICAN 15
[2018-03-20 16:57] LABS: B-TYPE NATRIURETIC PEPTIDE 10600 pg/mL (0-450); TROPONIN I < 0.01 ng/mL
[2018-03-20 19:08] LABS: URINE BILIRUBIN NEGATIVE (NEGATIVE); URINE BLOOD MODERATE (NEGATIVE); URINE GLUCOSE (UA) NEGATIVE (NEGATIVE); URINE LEUKOCYTE ESTERASE MODERATE Leu/uL (NEGATIVE); URINE PROTEIN >=300 mg/dL (<30 mg/dL); URINE UROBILINOGEN 0.2 E.U./dL (<1 E.U./dL)
[2018-03-20 19:10] LABS: URINE APPEARANCE SL CLOUDY (CLEAR); URINE COLOR LIGHT YELLOW (YELLOW)
[2018-03-20 19:11] LABS: URINE RBC 20 - 25 /hpf (0-2); URINE WBC 25 - 30 /hpf (0-6)
[2018-03-20 19:12] LABS: URINE BACTERIA LARGE (NEG)
[2018-03-20 19:13] LABS: URINE FINE GRANULAR CAST 0 - 2 /hpf (0-2)
[2018-03-20] MEDS ORDERED: cefTRIAXone 1 gm 1 GM/100 ML BAG IVPB STA (19:19)
[2018-03-20] MEDS ORDERED: Bacitracin 500 Units/gm Oint Foilpak UD ONE (23:04)
--- NOTE | 2018-03-21 07:59 | RAD ---
Date of service: 03/20/2018 HISTORY: fever COMPARISON: No prior. FINDINGS: LUNGS: No active pulmonary disease. PLEURA: No significant pleural effusion identified, no pneumothorax apparent. CARDIOVASCULAR: Normal. OSSEOUS STRUCTURES: No significant abnormalities. VISUALIZED UPPER ABDOMEN: Normal. OTHER FINDINGS: None. IMPRESSION: No active disease.
--- NOTE | 2018-03-21 09:08 | CARD ---
APPROVED REPORT Date of service: 03/20/2018 EKG Measurement Heart [id number] <Conclusion> Normal sinus rhythm Cannot rule out Inferior infarct, age undetermined Abnormal ECG
[2018-03-21 11:06] LABS: IRON 19 ug/dL (45-180)
[2018-03-21 11:10] LABS: ALB/GLOB RATIO 1.2 (1.1-1.8); ALBUMIN 3.5 g/dL (3.0-4.8); CALCIUM 8.5 mg/dL (8.4-10.5)
[2018-03-21 11:15] LABS: % IRON SATURATION 8 % (20-55); TOTAL IRON BINDING CAPACITY 225 ug/dL (265-497)
[2018-03-21] MEDS: levoFLOXacin 500 mg in D5W 500 MG/100 ML BAG IVPB SCH (12:41)
[2018-03-21] MEDS: Sodium Bicarbonate 8.4% 50 MEQ in Dextrose 5%/0.45% NS 1,000 ML IV SCH (12:42)
--- NOTE | 2018-03-21 13:33 | PN ---
Copied To: Pierce Quispe MD Attending MD: Pierce Quispe MD DATE: 03/21/2018 DAILY PROGRESS NOTE SUBJECTIVE: The patient is a 77-year-old female who was admitted with acute on chronic renal failure, possible congestive heart failure with an elevated beta-natriuretic protein and a urinary tract infection. Today, the chest x-ray shows no acute disease. EKG is read as regular sinus rhythm with a possible old inferior wall MO. This morning when seen, the patient states that she feels better. Her temperature is down to 99.3 degrees Fahrenheit this morning. Blood pressure is 150/78, heart rate is 80. She was evaluated by Dr. Ca, the government property inspector. I discussed the case with him and he feels confident with IV fluids. Her creatinine should be brought down to the mid 1 range. The patient, however, is feeling comfortable. She is in good spirits. We are continuing current regimen and she will be reevaluated in the morning. Pierce Quispe MD [email or web address]
[2018-03-21] MEDS: FEBUXOSTAT PO SCH (15:57)
[2018-03-21] MEDS: diltiaZEM IVPB 100mg in NS 100 ML IV SCH (17:29)
--- NOTE | 2018-03-21 18:20 | CON ---
Copied To: Casimiro Ca MD Attending MD: Casimiro Ca MD DATE: 03/21/2018 REFERRING MD: Tj Quispe MD. The patient admitted for Dr. Tj Quispe. REASON FOR CONSULTATION: Evaluation of a patient known to us from previous evaluations, who presents with an elevated BUN and creatinine in the setting of dehydration, fevers and a likely urinary tract infection. HISTORY OF PRESENT ILLNESS: The patient is a very pleasant 77-year-old white female with a long history of hypertension. Perhaps hypertensive nephrosclerosis, history of gout, history of anemia. The patient was last seen by us back in 12/2017 with dehydration and diarrhea. She presents at this time with a 5-day history of fevers. Diminished p.o. fluid intake. Weakness. She denies any nausea, vomiting or diarrhea. The patient was sent over to the emergency room. She was noted to have an elevated BUN and creatinine of 46 and 3.1. Of note, with hydration during the previous hospitalization, her BUN and creatinine dropped a low of 20 and 1.4. The patient did have 24-hours urines done on the previous admission, which did show chronic kidney disease stage 4 with a creatinine clearance of 22 mL/minute and 1085 mg of protein in the urine. Imaging studies at that time showed bilateral renal scarring with smaller kidneys. We are asked to evaluate the patient for the elevated BUN and creatinine. The patient is also noted to have a CO2 of 15 with an anion gap metabolic acidosis. PAST MEDICAL HISTORY: Significant for hypertension, history of anemia, history of gout. History of chronic kidney disease stage 3, likely. History of mild proteinuria, perhaps secondary to hypertensive nephrosclerosis. MEDICATIONS AT HOME: Include that of clonidine, Norvasc, Uloric, Flagyl, Ultram and Zofran p.r.n. ALLERGIES: THE PATIENT HAS NO ALLERGIES TO MEDICATIONS. MEDICATIONS PRESENTLY IN HOSPITAL: Included that of Rocephin 1 g given in the emergency room late last night. SOCIAL HISTORY: Past history of cigarette smoking. The patient has not smoked in many years. No history of alcohol use. FAMILY HISTORY: Father of reasons unknown to the patient. Mother of complications of COPD. REVIEW OF SYSTEMS: 10+ systems reviewed with the patient. GENERAL: Positive for decreased appetite and perhaps mild weight loss over the last 5 days with diminished p.o. fluid intake. HEENT: Denies any hearing or visual problems. PULMONARY: No history of shortness of breath, COPD, asthma, bronchitis, emphysema or pneumonia. CARDIAC: No history of ASHD. GI: No diarrhea, nausea, vomiting, constipation, abdominal pain. : Positive urinary tract infection as noted above. AIR AND WATER FILLER: Postmenopausal. ENDOCRINE: No history of diabetes. MUSCULOSKELETAL: Positive history of gout. NEUROLOGIC: No history of CVA, TIA, seizures or syncope. HEME/ONC: History of anemia as noted above. PSYCHIATRIC: History is negative. PHYSICAL EXAMINATION: GENERAL: The patient is currently seen on 2R. She is lying comfortable in bed. No IV fluids are infusing. VITAL SIGNS: Blood pressure is 150/78; temperature is 99.3, down from a high of 100.7. Pulse is 80. Respiratory rate is 21. HEENT: Shows her to be normocephalic, atraumatic. Her conjunctivae are pale. Sclerae are nonicteric. Pupils equal, round, reactive to light and accommodation. Extraocular muscles are intact. Posterior pharynx is normal. NECK: Supple. No neck vein distention. No thyromegaly. No lymphadenopathy. No bruits. CHEST: Clear to auscultation and percussion with no rales, rhonchi or wheezing. CARDIOVASCULAR: Shows a regular rate and rhythm without audible murmurs, rubs or gallops. ABDOMEN: Soft. Bowel sounds are normal. No rebound, guarding or masses. No suprapubic tenderness. BACK: No CVAT. No spinal tenderness. EXTREMITIES: Show no lower extremity cyanosis, clubbing or edema. Distal lower extremity pulses are 1-2+ bilateral. NEURO: Shows her to be alert, oriented x3 with no gross focal motor or sensory deficits noted. LABORATORY DATA AND IMAGING: CBC from last night: White blood cell count 8.8, hemoglobin 9.4 with a platelet count of 278,000. Coags are normal. Blood gas showed a pH of 7.31, pO2 of 106 with a pCO2 of 31. Lactate level was 0.9. Chemistries showed a sodium of 135, potassium 4.4, chloride normal at 106 with a low CO2 level of 15. Anion gap is 19. BUN 46, up from her baseline of 20. Creatinine is 3.1, up from her baseline of 1.4. Glucose is 103. Liver enzymes are normal with the exception of a mild elevation of alkaline phosphatase. Troponins are negative. CPK is normal. LDH is normal. BNP is 10,600. Albumin is 4. Urines were positive for protein. Positive for red blood cells, positive for white blood cells, positive for bacteria. Microbiology: All cultures are pending at the time of dictation. Imaging: Chest x-ray is negative. EKG done on admission showed a normal sinus rhythm with no acute ST or T-wave changes. ASSESSMENT: 1. Acute renal failure superimposed on chronic kidney disease stage 3, likely in the setting of fevers x5 days with diminished p.o. fluid intake. It appears that the patient has a urinary tract infection. She had received one dose of antibiotics in the emergency room and should receive antibiotics during her stay in the hospital pending cultures and sensitivities. 2. History of chronic kidney disease stage 3, likely secondary to hypertensive nephrosclerosis. The patient has bilateral scarring of her kidneys, which was seen on previous imaging studies back in December. These will not be repeated. The patient also has borderline small kidneys. The patient has mild proteinuria, 1085 mg of protein in her urine. 3. History of anemia, in part secondary to chronic kidney disease. 4. History of gout. The patient continues on Uloric. No recent gout attacks. 5. History of hypertension. The patient may continue clonidine and Norvasc. In light of her renal issues, the patient will remain off angiotensin-converting enzyme inhibitors and angiotensin receptor blockers. 6. Anion gap metabolic acidosis secondary to acute renal failure. The patient will be started on sodium bicarbonate supplements. PLAN: 1. IV fluid hydration and sodium bicarbonate supplementation. 2. Urine cultures are pending. Blood cultures are pending. 3. Dr. Quispe will choose an antibiotic for empiric treatment of the urinary tract infection. 4. Aranesp and oral iron for her anemia. 5. Renal diet ordered. 6. Check phosphorus level and decide on binder therapy. 7. Continue to monitor accurate I's and O's and daily labs until her renal parameters return to baseline levels. Thank you for letting me partake and share in the care of your patient. Casimiro Ca MD [facility] # [id number] YAMILE
--- NOTE | 2018-03-21 19:35 | HP ---
Copied To: Pierce Quispe MD Attending MD: Pierce Quispe MD HISTORY OF PRESENT ILLNESS: The patient is a 77-year-old female, who presented to the emergency room complaining of a 5-day history of weakness, chills, shaking at times, overall fatigue, intermittent nausea. She was seen by her primary care physician 2 days ago, was started on Flagyl; however, claims it did not help, so the patient presented to the emergency room, is evaluated and admitted. PAST MEDICAL HISTORY: The patient is known to have a past medical history positive for hypertension, gout, hypercholesterolemia. She has a history of venous stasis in the right lower extremity. She fractured her tibia on the right side in 2007. She underwent venous ligation of the right lower extremity in 2011 and 2015. Underwent breast biopsy in 2002. SOCIAL HISTORY: She is a . She has 4 children. She discontinued smoking cigarettes in 2003. She is a nonalcoholic drinker. Drinks about one cup of coffee a day. ALLERGIES: SHE HAS NO KNOWN MEDICAL ALLERGIES. MEDICATIONS: Include amlodipine 10 mg once a day, clonidine 0.1 mg once a day, Uloric 40 mg once a day. She also has Ultram and Zofran on hold to use p.r.n. PHYSICAL EXAMINATION: HEENT: The head, eyes, ears, nose and throat are unremarkable. NECK: Supple with no lymphadenopathy. No goiter. LUNGS: Clear to auscultation and percussion. HEART: Regular. No murmurs are appreciated. ABDOMEN: Soft, nontender. No rebound. No CVA tenderness. EXTREMITIES: Free of cyanosis, clubbing or edema. NEUROLOGICAL: The patient is awake, alert and oriented with no focal neurological signs. VITAL SIGNS: Her blood pressure is 157/88, heart rate is 106 and she is slightly febrile at 100.3 degrees Fahrenheit. LABORATORY DATA: Laboratory studies show the white blood cell count to be 8.8, hemoglobin and hematocrit are 9.4 and 28.3 respectively, platelet count is 278. Sodium is 135, potassium 4.4, blood urea nitrogen 46, creatinine is 3.1. Review of the office chart shows that the patient's creatinine had been above 2 since about March 2015. Her urinalysis is positive for urinary tract infection. Also of note is the beta natriuretic protein is elevated at 10,600. IMPRESSION: So the patient is admitted with acute on chronic renal failure, urinary tract infection, congestive heart failure, although I questioned the congestive heart failure diagnosis and that the patient lungs are clear, she does not describe any shortness of breath, dyspnea on exertion or orthopnea. Dr. Ca, the clerical supervisor is asked to consult on the case and we will continue to follow the patient closely. I will start her on Levaquin 500 mg IV daily for her urinary tract infection. The patient will be reevaluated in the morning. Pierce Quispe MD
[2018-03-22] MEDS: Sodium Bicarbonate 8.4% 50 MEQ in Dextrose 5%/0.45% NS 1,000 ML IV SCH ×2 (04:22→20:04)
[2018-03-22 07:33] LABS: HEMOGLOBIN 8.6 g/dL (12.0-16.0); MEAN CELL VOLUME 86.6 fl (80.0-105.0); MEAN CORPUSCULAR HEMOGLOBIN 28.1 pg (25.0-35.0); MEAN CORPUSCULAR HGB CONC 32.5 g/dl (31.0-37.0); RBC 3.06 10^6/uL (3.5-6.1); RED CELL DISTRIBUTION WIDTH 13.8 % (11.5-14.5); WHITE BLOOD COUNT 6.4 10^3/ul (4.5-11.0)
[2018-03-22 07:49] LABS: ALB/GLOB RATIO 1.1 (1.1-1.8); ALBUMIN 3.1 g/dL (3.0-4.8)
[2018-03-22] MEDS: Iron Complex Polysacch 150mg Cap PO SCH (09:44)
[2018-03-22] MEDS: levoFLOXacin 500 mg in D5W 500 MG/100 ML BAG IVPB SCH (09:45)
[2018-03-22] MEDS: FEBUXOSTAT PO SCH (10:00)
[2018-03-22] MEDS ORDERED: Darbepoetin Alfa 60 mcg/ml Inj SC ONE (10:00)
[2018-03-22] MEDS: diltiaZEM IVPB 100mg in NS 100 ML IV SCH (13:00)
--- NOTE | 2018-03-22 15:16 | PN ---
Copied To: Pierce Quispe MD Attending MD: Pierce Quispe MD DATE: 03/22/2018 SUBJECTIVE: The patient is a 77-year-old female who was admitted with [id number] renal failure, possible congestive heart failure with an elevated BNP and urinary tract infection. The chest x-ray showed no acute disease. EKG was regular sinus rhythm with a possible old inferior wall myocardial infarction. The patient was started on intravenous Levaquin for the urinary tract infection and was doing well. Yesterday, the patient's rhythm change to atrial fibrillation with a rapid ventricular response at 130-140 beats per minute. She was started on Cardizem drip, which slowed the rate down to 80 to 85 beats per minute. When seen today, the patient is awake, alert and oriented. She denies any past history of cardiac condition. Her respirations are easy. She denies any chest pain. However, does admit to feeling some palpitations radiating to her back. The lungs are clear anteriorly. The heart is irregularly irregular. Heart rate at present is 100 beats per minute. Her Cardizem drip as per nursing staff had been discontinued. The patient was started on metoprolol 25 mg twice a day. She was also started on subcutaneous heparin 5000 units every 8 hours. The patient is being followed by Dr. Eagle, the mash tub cooker who is covering for Dr. Phillips and Dr. Givens. Echocardiogram is ordered. This morning's laboratory shows the white blood cell count to be 6.4, hemoglobin and hematocrit are 8.6 and 26.5 respectively. Sodium is 139, potassium 4.5. Blood urea nitrogen is 43, creatinine is 2.5, blood pressure is 158/77. So, we are continuing to treat the patient for her urinary tract infection. We are continuing with IV fluids, D5 and half normal saline with sodium bicarb 8.4% at 80 mL an hour as per Dr. Ca, the deployment technician and now cardiac workup has been started as per Cardiology. We will continue to follow the patient closely. Pierce Quispe MD : 03/22/2018 13:21:57 [facility] # [id number]
--- NOTE | 2018-03-22 23:55 | CON ---
Copied To: Daniel Eagle MD Attending MD: Daniel Eagle MD DATE: 03/22/2018 CARDIOLOGY CONSULTATION REASON FOR CONSULTATION: New onset atrial fibrillation. HISTORY OF PRESENT ILLNESS: The patient is a 77-year-old female, is unaware of any prior cardiac history, has a history of chronic kidney disease, who was admitted because of fever and chills 5 days prior to admission associated with shaking and nausea, but no vomiting. The patient was evaluated by primary physician and was advised to go to the emergency room. The patient was treated for E. coli urinary tract infection. While on the monitor yesterday, patient developed rapid atrial fibrillation and was started on IV Cardizem infusion beside subcutaneous heparin. The patient denies any chest pain, and is unaware of any palpitation or dizziness either now or in the past. SOCIAL HISTORY: Nonsmoker. MEDICATIONS: Cardizem infusion 5 mg per hour, clonidine 0.5 mg twice a day, Ferrex-150 one tablet daily, heparin 5000 units subcutaneous every 8 hours, Levaquin 500 mg intravenously daily, Lopressor 25 mg once a day, Norvasc 10 mg once a day, Ultram 50 mg b.i.d., Zofran 4 mg p.o. four times a day p.r.n. REVIEW OF SYSTEMS: Patient did report nausea, but no vomiting. Patient reported low-grade fever and chills. PHYSICAL EXAMINATION: GENERAL: The patient is an elderly female, who does not appear to be in any acute distress. VITAL SIGNS: Blood pressure 158/77, heart rate 125, temperature 99 degrees Fahrenheit, respirations 20. HEENT: Pale conjunctivae. CHEST: Clear. HEART: S1 and S2 regular. ABDOMEN: Soft. EXTREMITIES: Trace leg edema. LABORATORY DATA: Hemoglobin and hematocrit 8.6 and 26.5. White count and platelet count are within normal limit. Today's SMA-7, sodium 139, potassium 4, chloride 109, CO2 19, glucose 101, BUN 43, creatinine 2.5. ProBNP 10,600. One set of troponin is negative. TSH level is within normal limit. INR is 1.12. PTT is within normal limits. Urinalysis has moderate leukocyte esterase with moderate urine blood and large protein, and large urine bacteria. Initial EKG on admission revealed sinus rhythm at the rate of 95, cannot rule out inferior infarct. Subsequent EKG yesterday revealed atrial fibrillation at the rate of 117. ASSESSMENT: 1. New onset versus paroxysmal atrial fibrillation. 2. Chronic renal insufficiency. 3. Escherichia coli urinary tract infection. 4. Hypertension. RECOMMENDATIONS: Continue current Cardizem infusion at 5 mg per hour and continue clonidine 0.5 mg twice a day, Ferrex at 150 mg twice a day, subcutaneous heparin 5000 units every 8 hours. Lopressor 25 mg twice a day was started today. Obtain an echocardiogram. Full anticoagulation may not be justified until anemia workup is completed to rule out any active source of bleeding. Daniel Eagle MD
[2018-03-23] MEDS: Sodium Bicarbonate 8.4% 50 MEQ in Dextrose 5%/0.45% NS 1,000 ML IV SCH ×2 (02:47→10:36)
--- NOTE | 2018-03-23 06:53 | CARD ---
APPROVED REPORT Date of service: 03/22/2018 EKG Measurement Heart [id number] <Conclusion> Atrial fibrillation with rapid ventricular response Abnormal ECG
[2018-03-23 07:32] LABS: HEMOGLOBIN 8.5 g/dL (12.0-16.0); MEAN CELL VOLUME 85.6 fl (80.0-105.0); MEAN CORPUSCULAR HEMOGLOBIN 28.5 pg (25.0-35.0); MEAN CORPUSCULAR HGB CONC 33.3 g/dl (31.0-37.0); MEAN PLATELET VOLUME 8.9 fl (7.0-11.0); RBC 2.98 10^6/uL (3.5-6.1); RED CELL DISTRIBUTION WIDTH 13.6 % (11.5-14.5); WHITE BLOOD COUNT 5.6 10^3/ul (4.5-11.0)
[2018-03-23 07:40] LABS: ALB/GLOB RATIO 1.1 (1.1-1.8); ALBUMIN 3.2 g/dL (3.0-4.8); CALCIUM 7.8 mg/dL (8.4-10.5)
--- NOTE | 2018-03-23 08:38 | CP.PCM.PN ---
Subjective - Date & Time of Evaluation Date of Evaluation: 03/23/18 Time of Evaluation: 06:45 - Subjective Subjective: Awake, alert, no distress Reason for consultation and follow up: Cardiac evaluation for new onset Atrial fibrillation, history of hypertension, chronic kidney disease. Seen and examined by me and Dr. Givens Objective - Vital Signs/Intake and Output Vital Signs (last 24 hours): Temp Pulse Resp BP Pulse Ox 98.6 F 85 20 151/73 H 97 03/23/18 06:00 03/23/18 06:00 03/23/18 06:00 03/23/18 06:00 03/23/18 06:00 Intake and Output: 03/23/18 03/23/18 06:59 18:59 Intake Total 1060 Output Total 0 Balance 1060 - Medications Medications: Current Medications Amlodipine Besylate (Norvasc) 10 mg PO DAILY [facility] Last Admin: 03/22/18 09:44 Dose: 10 mg Clonidine HCl (Catapres) 0.1 mg PO BID [facility] Last Admin: 03/22/18 18:22 Dose: 0.1 mg Heparin Sodium (Porcine) (Heparin) 5,000 units SC Q8 [facility] PRN Reason: Protocol Last Admin: 03/23/18 05:13 Dose: 5,000 units Sodium Bicarbonate 50 meq/ (Dextrose/Sodium Chloride) 1,050 mls @ 80 mls/hr IV .[id number] [facility] Last Admin: 03/23/18 02:47 Dose: Not Given Levofloxacin/Dextrose (Levaquin 500mg) 500 mg in 100 mls @ 100 mls/hr IVPB DAILY [facility] PRN Reason: Protocol Last Admin: 03/22/18 09:45 Dose: 100 mls/hr Metoprolol Tartrate (Lopressor) 25 mg PO BID [facility] Last Admin: 03/22/18 18:23 Dose: 25 mg Home Med - Febuxostat [Uloric] 1 Tab 1 tab PO DAILY [facility] Last Admin: 03/22/18 10:00 Dose: Not Given Ondansetron HCl (Zofran Odt) 4 mg PO QID PRN PRN Reason: NAUSEA/VOMITING Polysaccharide Iron Complex (Ferrex-150) 150 mg PO DAILY [facility] Last Admin: 03/22/18 09:44 Dose: 150 mg Tramadol HCl (Ultram) 50 mg PO BID PRN PRN Reason: Pain, moderate (4-7) - Labs Labs: 03/23/18 06:45 03/23/18 06:30 PT 12.8 SECONDS (9.4-12.5) H 03/20/18 15:45 INR 1.12 03/20/18 15:45 APTT 34.6 Seconds (25.1-36.5) 03/20/18 15:45 - Constitutional Appears: No Acute Distress - ENT Exam ENT Exam: Mucous Membranes Moist - Respiratory Exam Respiratory Exam: Decreased Breath Sounds, NORMAL BREATHING PATTERN - Cardiovascular Exam Cardiovascular Exam: REGULAR RHYTHM, +S1, +S2 - GI/Abdominal Exam GI & Abdominal Exam: Soft, Normal Bowel Sounds Additional comments: denies nausea - Neurological Exam Neurological Exam: Alert, Awake, Oriented x3 - Psychiatric Exam Psychiatric exam: Normal Affect - Skin Skin Exam: Dry, Warm Assessment and Plan - Assessment and Plan (Free Text) Assessment: A 77 year old female who came in to the ER due to weakness for five days with fever with nausea. Cardiac consult was called due to onset atrial fibrillation. History of chronic kidney disease,hypertension,gout,right leg surgery. Urinalysis positive for infection (E. coli) Given IV cardizem for atrial fibrillation and now discontinued and on normal sinus rhythm. For ECHO. Plan: On normal sinus rhythm Continue Lopressor For ECHO to evaluate LV function Blood pressure and heart rate controlled On IV antibiotics for UTI TSH level normal Continue current treatment Continue current medications Will follow up Plan and treatment discussed with Dr. Givens
[2018-03-23] MEDS: Iron Complex Polysacch 150mg Cap PO SCH (10:35)
[2018-03-23] MEDS: levoFLOXacin 500 mg in D5W 500 MG/100 ML BAG IVPB SCH (10:36)
[2018-03-23] MEDS ORDERED: Magnesium 2 gm/50 ml NS 2 GM/50 ML BAG IVPB ONE (11:17)
[2018-03-23] MEDS ORDERED: Magnesium Oxide 400 mg Tab UD PO SCH (11:30)
[2018-03-23] MEDS: FEBUXOSTAT PO SCH (11:56)
--- NOTE | 2018-03-23 13:03 | PN ---
Copied To: Sera Currie MD Attending MD: Sera Currie MD DATE: 03/23/2018 SUBJECTIVE: The patient is seen sitting in bed. She is awake. She is alert. She is eating lunch with her son. She denies any pain. She denies any shortness of breath. She denies any nausea or vomiting. She denies any abdominal pain or diarrhea. PHYSICAL EXAMINATION GENERAL: Morbidly obese elderly lady sitting in bed. VITAL SIGNS: Blood pressure 159/72, heart rate 92, respiratory rate 20, temperature 98.6. HEENT: Normocephalic, atraumatic, positive pallor. NECK: Supple, no JVD. LUNGS: Bilateral equal entry, distant breath sounds, no rales appreciated. CARDIAC: S1 and S2, regular rate and rhythm, no murmur, no rub. ABDOMEN: Obese, distended, soft, nontender, bowel sounds present. EXTREMITIES: Trace lower extremity edema. INTAKE AND OUTPUT: 2320/not charted. LABORATORY DATA: WBC 5.6, hemoglobin 8.5, hematocrit 25.5, platelets 314. Sodium 139, potassium 4, chloride 110, CO2 of 18, BUN 38, creatinine 2.1, glucose 95, calcium 7.8, magnesium 1.6. Iron saturation 8, iron 19, ferritin 107. Urine culture, E. coli. CURRENT MEDICATIONS: Catapres, iron, heparin, Levaquin, Lopressor, mag oxide, amlodipine 10, D5 half-normal saline with 1 amp of bicarb at 80, Ultram, Zofran. ASSESSMENT: 1. Acute kidney injury, superimposed on chronic kidney disease stage III, baseline creatinine around 1.4 to 1.5. 2. Escherichia coli urinary tract infection. 3. Iron deficiency anemia. 4. Hypertension. 5. Obesity. PLAN: 1. Check stool occults x3. 2. Give IV Venofer while the patient is here. 3. Consider GI evaluation. 4. Continue IV fluids for one more day. 5. Continue antibiotics for E. coli UTI, dose all antibiotics for creatinine clearance about 30 mL/minute. 6. Monitor daily labs and urine output. 7. Continue to hold ARB for the time being. Sera Currie MD
--- NOTE | 2018-03-23 21:34 | CARD ---
APPROVED REPORT Date of service: 03/23/2018 EXAM: Two-dimensional and M-mode echocardiogram with Doppler and color Doppler. INDICATION Atrial Fibrillation 2D DIMENSIONS Left Atrium (2D)5.1 (1.6-4.0cm)IVSd0.9 (0.7-1.1cm) LVDd5.0 (3.9-5.9cm)PWd1.0 (0.7-1.1cm) LVDs3.4 (2.5-4.0cm)FS (%) 33.1 % LVEF (%)61.3 (>50%) M-Mode DIMENSIONS Aortic Root3.20 (2.2-3.7cm)Aortic Cusp Exc.1.90 (1.5-2.0cm) Aortic Valve AoV Peak Duurxeej681.0cm/sAoV VTI44.7cmAO Peak GR.15mmHg AO Mean GR.7mmHgAI P 1/2 [id number] Mitral Valve MV E Mcovkokq734.0cm/sMV A Oreinryb826.0cm/sE/A ratio0.9 TDI Lateral E' Peak V7.02cm/sMedial E' Peak V5.65cm/sE/Lateral E'14.2 E/Medial E'17.7 Pulmonary Valve PV Peak Utnctots65.5cm/sPV Peak Grad.2mmHg Tricuspid Valve TR Peak Eyjockdz552bu/sRAP GSZGVRFG70crJeUG Peak Gr.45mmHg HGEI21ksZc LEFT VENTRICLE The left ventricle is normal size. There is normal left ventricular wall thickness. The left ventricular function is normal. The left ventricular ejection fraction is within the normal range. There is normal LV segmental wall motion. Transmitral Doppler flow pattern is Grade I-abnormal relaxation pattern. RIGHT VENTRICLE The right ventricle is normal size. There is normal right ventricular wall thickness. The right ventricular systolic function is normal. ATRIA The left atrium is moderately dilated. The right atrium size is normal. AORTIC VALVE The aortic valve is moderately thickened. There is moderate aortic regurgitation. There is no aortic valvular stenosis. Cannot exclude aortic valvular vegetation.Consider TREVOR MITRAL VALVE The mitral valve is mildly thickened. Mitral regurgitation is mild. TRICUSPID VALVE The tricuspid valve is normal in structure. There is moderate tricuspid regurgitation. There is moderate pulmonary hypertension. GREAT VESSELS The aortic root is normal in size. <Conclusion> Cannot exclude aortic valvular vegetation.Consider TREVOR There is moderate aortic regurgitation. The left ventricle is normal size. There is normal left ventricular wall thickness. The left ventricular function is normal. The left ventricular ejection fraction is within the normal range. There is normal LV segmental wall motion. Transmitral Doppler flow pattern is Grade I-abnormal relaxation pattern. There is moderate tricuspid regurgitation. There is moderate pulmonary hypertension.
--- NOTE | 2018-03-23 22:29 | CARD ---
APPROVED REPORT Date of service: 03/23/2018 EKG Measurement Heart [id number] <Conclusion> Normal sinus rhythm Cannot rule out Inferior infarct, age undetermined Abnormal ECG
[2018-03-24] MEDS: Sodium Bicarbonate 8.4% 50 MEQ in Dextrose 5%/0.45% NS 1,000 ML IV SCH (05:25)
--- NOTE | 2018-03-24 07:27 | CP.PCM.PN ---
Subjective - Date & Time of Evaluation Date of Evaluation: 03/24/18 Time of Evaluation: 06:30 - Subjective Subjective: Feels better,awake, alert, no distress, denies nausea Reason for consultation and follow up: Cardiac evaluation for new onset Atrial fibrillation, history of hypertension, chronic kidney disease. Seen and examined by me and Dr. Givens Objective - Vital Signs/Intake and Output Vital Signs (last 24 hours): Temp Pulse Resp BP Pulse Ox 98.5 F 71 20 156/63 H 96 03/24/18 06:00 03/24/18 06:00 03/24/18 06:00 03/24/18 06:00 03/24/18 06:00 Intake and Output: 03/24/18 03/24/18 06:59 18:59 Intake Total 1230 Output Total 1000 Balance 230 - Medications Medications: Current Medications Amlodipine Besylate (Norvasc) 10 mg PO DAILY [facility] Last Admin: 03/23/18 10:35 Dose: 10 mg Clonidine HCl (Catapres) 0.1 mg PO BID [facility] Last Admin: 03/23/18 18:48 Dose: 0.1 mg Famotidine (Pepcid) 40 mg PO HS [facility] Last Admin: 03/23/18 21:49 Dose: 40 mg Heparin Sodium (Porcine) (Heparin) 5,000 units SC Q8 [facility] PRN Reason: Protocol Last Admin: 03/24/18 05:24 Dose: 5,000 units Sodium Bicarbonate 50 meq/ (Dextrose/Sodium Chloride) 1,050 mls @ 80 mls/hr IV .Q13H8M [facility] Last Admin: 03/24/18 05:25 Dose: 80 mls/hr Iron Sucrose 200 mg/ Sodium (Chloride) 110 mls @ 110 mls/hr IVPB DAILY [facility] Stop: 03/27/18 10:59 Last Admin: 03/23/18 15:49 Dose: 110 mls/hr Levofloxacin (Levaquin) 250 mg PO Q48H [facility] Magnesium Oxide (Mag-Ox) 400 mg PO DAILY [facility] Metoprolol Tartrate (Lopressor) 50 mg PO BID [facility] Last Admin: 03/23/18 18:51 Dose: 50 mg Home Med - Febuxostat [Uloric] 1 Tab 1 tab PO DAILY [facility] Last Admin: 03/23/18 11:56 Dose: Not Given Ondansetron HCl (Zofran Odt) 4 mg PO QID PRN PRN Reason: NAUSEA/VOMITING Polysaccharide Iron Complex (Ferrex-150) 150 mg PO DAILY [facility] Last Admin: 03/23/18 10:35 Dose: 150 mg Tramadol HCl (Ultram) 50 mg PO BID PRN PRN Reason: Pain, moderate (4-7) - Labs Labs: 03/23/18 06:45 03/23/18 06:30 PT 12.8 SECONDS (9.4-12.5) H 03/20/18 15:45 INR 1.12 03/20/18 15:45 APTT 34.6 Seconds (25.1-36.5) 03/20/18 15:45 - Constitutional Appears: No Acute Distress - Eye Exam Eye Exam: Normal appearance - ENT Exam ENT Exam: Mucous Membranes Moist - Respiratory Exam Respiratory Exam: Decreased Breath Sounds, NORMAL BREATHING PATTERN - Cardiovascular Exam Cardiovascular Exam: REGULAR RHYTHM, +S1, +S2 Additional comments: NSR 70's telemetry - GI/Abdominal Exam GI & Abdominal Exam: Soft, Normal Bowel Sounds - Extremities Exam Extremities Exam: Normal Capillary Refill - Neurological Exam Neurological Exam: Alert, Awake, Oriented x3 - Psychiatric Exam Psychiatric exam: Normal Affect - Skin Skin Exam: Intact, Warm Assessment and Plan - Assessment and Plan (Free Text) Assessment: A 77 year old female who came in to the ER due to weakness for five days with fever with nausea. Cardiac consult was called due to onset atrial fibrillation. History of chronic kidney disease,hypertension,gout,right leg surgery. Urinalysis positive for infection (E. coli) Given IV cardizem for atrial fibrillation and now discontinued and on normal sinus rhythm. For ECHO. Plan: Echo showed LVEF 61%, moderate AR/TR, pulmonary hypertension, cannot exclude aortic valvular vegetation Blood cultures negative x 2 On normal sinus rhythm-70's Blood pressure and heart rate controlled Continue antibiotics for UTI On Norvasc 10 mg daily,Clonindine 0.1 mg BID,Lopressor 50 mg BID Continue current treatment Continue current medications Will follow up Plan and treatment discussed with Dr. Givens
[2018-03-24 07:29] LABS: HEMOGLOBIN 8.4 g/dL (12.0-16.0); MEAN CELL VOLUME 85.5 fl (80.0-105.0); MEAN CORPUSCULAR HEMOGLOBIN 28.3 pg (25.0-35.0); MEAN CORPUSCULAR HGB CONC 33.1 g/dl (31.0-37.0); RBC 2.97 10^6/uL (3.5-6.1); RED CELL DISTRIBUTION WIDTH 13.7 % (11.5-14.5); WHITE BLOOD COUNT 5.7 10^3/ul (4.5-11.0)
[2018-03-24 08:30] LABS: CALCIUM 7.8 mg/dL (8.4-10.5)
[2018-03-24] MEDS: Iron Complex Polysacch 150mg Cap PO SCH (10:19)
[2018-03-24] MEDS: Magnesium Oxide 400 mg Tab UD PO SCH (10:29)
--- NOTE | 2018-03-24 10:40 | CP.PCM.CON ---
<Ritchie Martins - Last Filed: 03/24/18 17:18> History of Present Illness - History of Present Illness History of Present Illness: Gastroenterology Consult note For Dr. Morelia Martins PGY2 Reason for Consult: Anticoagulation for atrial fibrillation in light of Anemia Patient is a 77 F with history of CKD, gout, and anemia who presented with complaints of lethargy and weakness x 5 days. Patient was sent from PCP to ED where she was found to be septic with source of infection being UTI. Patient developed atrial fibrillation with rvr during course of hospital stay. Anticoagulation was discussed as a possibility depending on whether this was new onset or paroxysmal atrial fibrillation. Patient is currently receiving IV iron sucrose for iron deficiency anemia. Patient denies any abdominal pain, bloody stools, nausea, vomiting, weakness, dizziness, shortness of breath, headache, chest pain, fevers, chills. Review of Systems - Constitutional Constitutional: absent: Chills, Fever - EENT Eyes: absent: Blurred Vision Ears: absent: Dizziness Nose/Mouth/Throat: absent: Nasal Congestion, Dysphagia - Cardiovascular Cardiovascular: absent: Chest Pain, Dyspnea, Palpitations - Respiratory Respiratory: absent: Cough, Dyspnea - Gastrointestinal Gastrointestinal: absent: Abdominal Pain, Coffee Ground Emesis, Diarrhea, Dysphagia, Hematochezia, Melena, Nausea, Vomiting - Genitourinary Genitourinary: absent: Hematuria - Musculoskeletal Musculoskeletal: absent: Back Pain - Integumentary Integumentary: absent: Bleeding Lesions - Neurological Neurological: absent: Dizziness, Numbness, Headaches, Weakness - Psychiatric Psychiatric: Anxiety - Endocrine Endocrine: absent: Change in Body Appearance - Hematologic/Lymphatic Hematologic: absent: Easy Bleeding, Easy Bruising Past Patient History - Infectious Disease Hx of Infectious Diseases: None - Tetanus Immunizations Tetanus Immunization: Unknown - Past Social History Smoking Status: Never Smoked - CARDIAC Hx Hypertension: Yes Other/Comment: hypotension - RENAL Hx Chronic Kidney Disease: Yes (renal failure) - INTEGUMENTARY Hx Dermatological Problems: Yes Other/Comment: right leg dermatitis - MUSCULOSKELETAL/RHEUMATOLOGICAL Hx Falls: No Hx Gout: Yes Other/Comment: hyperuricemia - GASTROINTESTINAL Hx Gastroesophageal Reflux: Yes - PSYCHIATRIC Hx Psychophysiologic Disorder: No Hx Depression: No Hx Emotional Abuse: No Hx Physical Abuse: No Hx Substance Use: No - SURGICAL HISTORY Hx Orthopedic Surgery: Yes Other/Comment: R leg surgery Meds Home Medications: Home Medication List Medication Instructions Recorded Confirmed Type Aspirin [Ecotrin] 81 mg PO DAILY #30 tabec 03/24/18 Rx Iron Polysaccharide [Ferrex-150] 150 mg PO DAILY #30 cap 03/24/18 Rx Magnesium Oxide [Mag-Ox] 400 mg PO DAILY #30 tab 03/24/18 Rx Metoprolol Tartrate [Lopressor] 50 mg PO BID #60 tab 03/24/18 Rx diltiaZEM CD [Cardizem CD] 120 mg PO DAILY #30 cap 03/24/18 Rx levoFLOXacin [Levaquin] 250 mg PO Q48H #3 tab 03/24/18 Rx Allergies/Adverse Reactions: Allergies Allergy/AdvReac Type Severity Reaction Status Date / Time No Known Allergies Allergy Verified 07/21/15 14:52 - Medications Medications: Current Medications Amlodipine Besylate (Norvasc) 10 mg PO DAILY [facility] Last Admin: 03/24/18 10:21 Dose: 10 mg Clonidine HCl (Catapres) 0.1 mg PO BID [facility] Last Admin: 03/24/18 10:22 Dose: 0.1 mg Famotidine (Pepcid) 40 mg PO HS [facility] Last Admin: 03/23/18 21:49 Dose: 40 mg Heparin Sodium (Porcine) (Heparin) 5,000 units SC Q8 [facility] PRN Reason: Protocol Last Admin: 03/24/18 05:24 Dose: 5,000 units Sodium Bicarbonate 50 meq/ (Dextrose/Sodium Chloride) 1,050 mls @ 80 mls/hr IV .Q13H8M [facility] Last Admin: 03/24/18 05:25 Dose: 80 mls/hr Iron Sucrose 200 mg/ Sodium (Chloride) 110 mls @ 110 mls/hr IVPB DAILY [facility] Stop: 03/27/18 10:59 Last Admin: 03/24/18 10:20 Dose: 110 mls/hr Levofloxacin (Levaquin) 250 mg PO Q48H [facility] Last Admin: 03/24/18 10:20 Dose: 250 mg Magnesium Oxide (Mag-Ox) 400 mg PO DAILY [facility] Last Admin: 03/24/18 10:29 Dose: 400 mg Metoprolol Tartrate (Lopressor) 50 mg PO BID [facility] Last Admin: 03/24/18 10:21 Dose: 50 mg Home Med - Febuxostat [Uloric] 1 Tab 1 tab PO DAILY [facility] Last Admin: 03/23/18 11:56 Dose: Not Given Ondansetron HCl (Zofran Odt) 4 mg PO QID PRN PRN Reason: NAUSEA/VOMITING Polysaccharide Iron Complex (Ferrex-150) 150 mg PO DAILY [facility] Last Admin: 03/24/18 10:19 Dose: 150 mg Tramadol HCl (Ultram) 50 mg PO BID PRN PRN Reason: Pain, moderate (4-7) Physical Exam - Head Exam Head Exam: ATRAUMATIC, NORMAL INSPECTION, NORMOCEPHALIC - Eye Exam Eye Exam: EOMI - ENT Exam ENT Exam: Mucous Membranes Moist - Neck Exam Neck exam: Positive for: Normal Inspection - Respiratory Exam Respiratory Exam: Clear to Auscultation Bilateral, NORMAL BREATHING PATTERN. absent: Rhonchi, Wheezes - Cardiovascular Exam Cardiovascular Exam: +S1, +S2. absent: Gallop, Rubs - GI/Abdominal Exam GI & Abdominal Exam: Normal Bowel Sounds, Soft - Rectal Exam Rectal Exam: NORMAL INSPECTION. absent: Black Stool, Bloody Stool, Hemorrhoids , Fecal Impaction - Extremities Exam Extremities exam: Positive for: normal inspection - Back Exam Back exam: NORMAL INSPECTION - Neurological Exam Neurological exam: Alert, Oriented x3 - Psychiatric Exam Psychiatric exam: Normal Affect, Normal Mood - Skin Skin Exam: Intact, Normal Color, Warm Results - Vital Signs Recent Vital Signs: Last Vital Signs Temp 98.5 F 03/24/18 06:00 Pulse 92 H 03/24/18 10:22 Resp 20 03/24/18 06:00 BP 144/69 03/24/18 10:22 Pulse Ox 96 03/24/18 06:00 - Labs Result Diagrams: 03/24/18 06:30 03/24/18 06:30 Labs: Laboratory Results - last 24 hr 03/24/18 03/24/18 03/24/18 06:30 06:30 06:30 WBC 5.7 RBC 2.97 L Hgb 8.4 L Hct 25.4 L MCV 85.5 MCH 28.3 MCHC 33.1 RDW 13.7 Plt Count 367 MPV 9.0 Retic Count 1.55 H Sodium 142 Potassium 3.8 Chloride 110 H Carbon Dioxide 22 Anion Gap 14 BUN 34 H Creatinine 1.8 H Est GFR ( Amer) 33 Est GFR (Non-Af Amer) 27 Random Glucose 93 Calcium 7.8 L Total Bilirubin 0.3 AST 26 ALT 33 Alkaline Phosphatase 99 Total Protein 5.9 Albumin 3.0 Globulin 2.9 Albumin/Globulin Ratio 1.0 L Stool Occult Blood 03/24/18 09:30 WBC RBC Hgb Hct MCV MCH MCHC RDW Plt Count MPV Retic Count Sodium Potassium Chloride Carbon Dioxide Anion Gap BUN Creatinine Est GFR ( Amer) Est GFR (Non-Af Amer) Random Glucose Calcium Total Bilirubin AST ALT Alkaline Phosphatase Total Protein Albumin Globulin Albumin/Globulin Ratio Stool Occult Blood Negative Assessment & Plan - Assessment and Plan (Free Text) Assessment: Patient is a 77 F with history of CKD, gout, and anemia who presented with complaints of lethargy and weakness x 5 days Plan: Anemia r/o GI etiology -CT abdomen/pelvis -Upper GI endoscopy if patient is agreeable -Clear liquid diet for breakfast tomorrow <Nidhi Thibodeaux V - Last Filed: 03/24/18 22:04> Meds - Medications Medications: Current Medications Amlodipine Besylate (Norvasc) 10 mg PO DAILY [facility] Last Admin: 03/24/18 10:21 Dose: 10 mg Aspirin (Ecotrin) 81 mg PO DAILY [facility] Clonidine HCl (Catapres) 0.1 mg PO BID [facility] Last Admin: 03/24/18 18:36 Dose: 0.1 mg Diltiazem HCl (Cardizem Cd) 120 mg PO DAILY [facility] Last Admin: 03/24/18 13:58 Dose: 120 mg Famotidine (Pepcid) 20 mg PO HS [facility] Last Admin: 03/24/18 21:21 Dose: 20 mg Heparin Sodium (Porcine) (Heparin) 5,000 units SC Q8 [facility] PRN Reason: Protocol Last Admin: 03/24/18 21:20 Dose: 5,000 units Iron Sucrose 200 mg/ Sodium (Chloride) 110 mls @ 110 mls/hr IVPB DAILY [facility] Stop: 03/27/18 10:59 Last Admin: 03/24/18 10:20 Dose: 110 mls/hr Levofloxacin (Levaquin) 250 mg PO Q48H [facility] Last Admin: 03/24/18 10:20 Dose: 250 mg Magnesium Oxide (Mag-Ox) 400 mg PO DAILY [facility] Last Admin: 03/24/18 10:29 Dose: 400 mg Metoprolol Tartrate (Lopressor) 50 mg PO BID [facility] Last Admin: 03/24/18 18:36 Dose: 50 mg Home Med - Febuxostat [Uloric] 1 Tab 1 tab PO DAILY [facility] Last Admin: 03/24/18 11:54 Dose: Not Given Ondansetron HCl (Zofran Odt) 4 mg PO QID PRN PRN Reason: NAUSEA/VOMITING Polysaccharide Iron Complex (Ferrex-150) 150 mg PO DAILY [facility] Last Admin: 03/24/18 10:19 Dose: 150 mg Tramadol HCl (Ultram) 50 mg PO BID PRN PRN Reason: Pain, moderate (4-7) Results - Vital Signs Recent Vital Signs: Last Vital Signs Temp 98.3 F 03/24/18 17:52 Pulse 91 H 03/24/18 18:36 Resp 20 03/24/18 17:52 BP 166/92 H 03/24/18 18:36 Pulse Ox 98 03/24/18 17:52 - Labs Result Diagrams: 03/24/18 06:30 03/24/18 06:30 Labs: Laboratory Results - last 24 hr 03/24/18 03/24/18 03/24/18 06:00 06:30 06:30 WBC 5.7 RBC 2.97 L Hgb 8.4 L Hct 25.4 L MCV 85.5 MCH 28.3 MCHC 33.1 RDW 13.7 Plt Count 367 MPV 9.0 Retic Count Sodium 142 Potassium 3.8 Chloride 110 H Carbon Dioxide 22 Anion Gap 14 BUN 34 H Creatinine 1.8 H Est GFR ( Amer) 33 Est GFR (Non-Af Amer) 27 Random Glucose 93 Calcium 7.8 L Magnesium 1.9 Total Bilirubin 0.3 AST 26 ALT 33 Alkaline Phosphatase 99 Total Protein 5.9 Albumin 3.0 Globulin 2.9 Albumin/Globulin Ratio 1.0 L Stool Occult Blood 03/24/18 03/24/18 06:30 09:30 WBC RBC Hgb Hct MCV MCH MCHC RDW Plt Count MPV Retic Count 1.55 H Sodium Potassium Chloride Carbon Dioxide Anion Gap BUN Creatinine Est GFR ( Amer) Est GFR (Non-Af Amer) Random Glucose Calcium Magnesium Total Bilirubin AST ALT Alkaline Phosphatase Total Protein Albumin Globulin Albumin/Globulin Ratio Stool Occult Blood Negative Attending/Attestation - Attestation I have personally seen and examined this patient.: Yes I have fully participated in the care of the patient.: Yes I have reviewed all pertinent clinical information: Yes Notes (Text): This is an addendum to GI consult report dictated by the Vaccine Manager.The patient was seen and evaluated earlier. Medical records, lab studies, imagings were reviewed. Last 24 hours events reviewed. Agreed with the above treatment plan as outlined in Vaccine Manager 's notes with the addition of the following Previous GI workup was reviewed with the patient. Patient is anemic which is multifactorial. Patient did have incomplete colonoscopy. Acutely angulated sigmoid colon noticed and the scope could be at not be advanced beyond. Patient was given request for virtual coloscopy and she did not followup. Patient was also given a req he did not have it done yet. Patient denies any recent change of bowel habits or bleeding per rectum. Patient would benefit from CT scan of the abdomen and vis and also EGD to further evaluate anemia. I did discuss with the Dr. Toney Quispe There is no plan to start her On Coumadin in view of the arrhythmia paroxysmal A. fib And anemia. 03/24/18 21:58
--- NOTE | 2018-03-24 10:46 | PN ---
Copied To: Pierce Quispe MD Attending MD: Pierce Quispe MD DATE: 03/23/2018 SUBJECTIVE: The patient is a 77-year-old female who was admitted to the [facility] 3 days ago with acute on chronic renal failure, congestive heart failure and urinary tract infection. To date, the patient has been receiving intravenous Levaquin for the urinary tract infection, E-coli grew out of the urine, which was sensitive to Cipro. 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 As of this morning, the creatinine is down to 2.1. It was in the mid 3s on admission. This morning, her blood urea nitrogen is 38. Over the weekend, the patient went into atrial fibrillation at rapid ventricular response. She was then treated with intravenous diltiazem. This was eventually decreased and she was placed on beta-chucky. It seems that last night, she converted back to regular sinus rhythm which she is in now. She remains on Lopressor and Levaquin. Echocardiogram was performed, the results are pending. When seen, the patient is awake, alert and oriented. She is in good spirits. She denies any chest pain, shortness of breath, palpitations. She is afebrile. Blood pressure is 151/73, heart rate is 85. Her white blood cell count is 5.6, hemoglobin and hematocrit is 8.5 and 25.5 respectively. This is down slightly from admission, I believe this is probably dilutional back from her IV fluids. However, we will be checking the stools for heme. We will continue to follow the patient closely. The case to be discussed with Cardiology and Nephrology. Pierce Quispe MD
--- NOTE | 2018-03-24 11:51 | CARD ---
APPROVED REPORT Date of service: 03/24/2018 EKG Measurement Heart [id number] <Conclusion> Normal sinus rhythm Normal ECG
[2018-03-24] MEDS: FEBUXOSTAT PO SCH (11:54)
[2018-03-24] MEDS: diltiaZEM 120 mg/24 Hours CD Cap PO SCH (13:58)
--- NOTE | 2018-03-24 14:10 | PN ---
Copied To: Baltazar Givens MD Attending MD: Baltazar Givens MD. DATE: 03/24/2018 REASON FOR DICTATION: Atrial fibrillation converted to normal sinus, fever. Echo reviewed, done yesterday. Calcification noted in the aortic valve in right coronary cusp, but no evidence of vegetation noted. Patient's blood culture negative. We will continue to treat current medication including hydration for acute kidney injury which is improving. Continue antibiotic, continue metoprolol increased to 50 mg b.i.d. Patient in normal sinus. Repeat echo this morning shows normal sinus. We will discontinue amlodipine and put calcium channel chucky rate limiting that is Cardizem 30 mg every 6 hours and changed to Cardizem CD from tomorrow to prevent patient going back into atrial fibrillation. At this point, no need to do TREVOR as mentioned. Calcium noted in aortic valve. No obvious vegetation noted. We will repeat blood culture. Baltazar Givens MD : 03/24/2018 10:49:23
[2018-03-24] MEDS ORDERED: Barium Sulfate Susp 2.1% w/v, 2.0% w/w 450 mL Bottle PO ONE (14:12)
--- NOTE | 2018-03-24 17:59 | PN ---
Copied To: Casimiro Ca MD Attending MD: Casimiro Ca MD DATE: 03/24/2018 SUBJECTIVE: The patient is currently seen lying comfortable in bed, receiving IV fluid hydration, on oral antibiotics for her urinary tract infection. Her BUN and creatinine have significantly improved. Her BUN is now 34 with a creatinine of 1.8. These values are approaching her baseline levels. MEDICATIONS: Medication list reviewed. The patient is currently on Cardizem; clonidine; Ecotrin; oral iron; IV iron; heparin; Uloric; Levaquin 250 mg every 48 hours; Lopressor; mag oxide; Pepcid; IV fluids with sodium bicarbonate, which will be discontinued after the present bag infuses; Ultram and Zofran. OBJECTIVE: INTAKE/OUTPUT: Intake 3190, output 2250. VITAL SIGNS: Blood pressure 151/87, temperature 98, respiratory rate 18 with a pulse of 81. HEENT: Exam shows her to be normocephalic, atraumatic. Conjunctivae are pale. Sclerae are nonicteric. NECK: Supple. No neck vein distention. CHEST: Clear to auscultation and percussion without rales, rhonchi or wheezing. CARDIOVASCULAR: Shows a regular rate and rhythm without audible murmurs, rubs or gallops. ABDOMEN: Soft. Bowel sounds normal. No rebound. No guarding or masses. EXTREMITIES: Show no lower extremity cyanosis, clubbing or edema. Distal lower extremity pulses are 1-2+ bilateral. LABORATORY DATA AND IMAGING: The patient is going down for an abdominal CT scan ordered by GI. Labs, CBC: White blood cell count 5.7, hemoglobin with hydration down to 8.4 with a platelet count of 367,000. Chemistries show electrolytes normal. Carbon dioxide is now up from 14 to 22 with supplementation. BUN is down from 47 to 34. Creatinine is down from 2.9 now down to 1.8. Her baseline BUN is in the 20s with a baseline creatinine of 1.4. Calcium corrected is normal. Phosphorus level was normal. Magnesium level is now normal with supplementation. Liver enzymes are normal. Albumin is 3. Iron saturations were 8%. Hence, the patient is receiving iron supplements. Microbiology positive for E. coli in her urine. Blood cultures are negative at 72 hours. ASSESSMENT: 1. Acute renal failure superimposed on chronic kidney disease stage 3. This is in the setting of urinary tract infection, dehydration with decreased p.o. fluid intake and fevers of 5 days. The patient should continue a full course of Levaquin. Given the improvement in her creatinine, Levaquin dose can be increased to 250 mg a day, but in all likelihood, she will respond to 250 mg every 48 hours as well. 2. History of chronic kidney disease stage 3, likely secondary to hypertensive nephrosclerosis. She has bilateral scarring on her kidneys seen on imaging studies back in the spring. 3. History of anemia, in part secondary to chronic kidney disease, in part secondary to iron deficiency. The patient is status post Aranesp 60 mcg given on 03/22/2018. She is also on oral iron supplements. 4. History of gout. The patient continues on Uloric. 5. History of hypertension. Blood pressure control is acceptable on clonidine and Norvasc. No plans for angiotensin-converting enzyme inhibition or angiotensin receptor blockers given the acute rise in her BUN and creatinine. 6. Anion gap metabolic acidosis has resolved with supplementation with sodium bicarbonate. CO2 level is now up to 22. PLAN: 1. May discontinue IV fluid hydration post the present dose. 2. Complete a course of antibiotics for her urinary tract infection. 3. Continue oral iron supplements upon discharge as the patient will likely not receive the full dose of 1 g of Venofer. 4. Continue renal diet. 5. Told the patient that she is more than welcome to follow up with us for her chronic kidney disease. Casimiro Ca MD
--- NOTE | 2018-03-24 18:08 | CT ---
Date of service: 03/24/2018 PROCEDURE: CT Abdomen and Pelvis with contrast HISTORY: r/o malignant source of anemia COMPARISON: 01/09/2018. CT abdomen and pelvis TECHNIQUE: Contrast dose: Oral contrast only. Radiation dose: Total exam DLP = 781.17 mGy-cm. This CT exam was performed using one or more of the following dose reduction techniques: Automated exposure control, adjustment of the mA and/or kV according to patient size, and/or use of iterative reconstruction technique. FINDINGS: LOWER THORAX: Trace right pleural effusion and adjacent atelectasis/infiltrate. LIVER: Unremarkable. No gross lesion or ductal dilatation. GALLBLADDER AND BILE DUCTS: Cholelithiasis without CT evidence of acute cholecystitis. PANCREAS: Unremarkable. No gross lesion or ductal dilatation. SPLEEN: Unremarkable. ADRENALS: Unremarkable. No mass. KIDNEYS AND URETERS: Right kidney: Unremarkable. No hydronephrosis. No solid mass. Left kidney: Atrophic left kidney, similar finding identified on the prior study VASCULATURE: Unremarkable. No aortic aneurysm. BOWEL: Diverticulosis without an acute inflammatory component or other associated pathologic process. APPENDIX: No abnormalities to suggest acute appendicitis. No right lower quadrant inflammatory processes identified. PERITONEUM: Unremarkable. No free fluid. No free air. LYMPH NODES: Unremarkable. No enlarged lymph nodes. BLADDER: Unremarkable. REPRODUCTIVE: Unremarkable. BONES: No acute fracture. OTHER FINDINGS: None. IMPRESSION: No significant or acute findings to account for/ related to the clinical presentation. Additional benign and/or incidental findings described above. No significant interval change compared to the prior examination(s).
--- NOTE | 2018-03-24 23:46 | PN ---
Copied To: Tj Quispe MD Attending MD: Tj Quispe MD DATE: 03/24/2018 SUBJECTIVE: Patient was seen this Friday at noontime in room 270, bed 2, with her son at the bedside. She is awake, alert, clear, and in good spirits. I reviewed the cases of the events leading up to and during the course of this hospital stay, start from her GI infection, diarrhea, urinary tract infection, poor p.o. intake of food and fluid, dehydration, elevated BUN and creatinine on admission, improvement of her elevated BUN and creatinine on admission to a near baseline creatinine of 1.8 today. Then, the unexpected development of passive atrial fibrillation, for which she has been converted back to sinus rhythm. Explained to the patient and her son, per Dr. Eagle's note, that if we were that his AFib was to persist, she would need long-term anticoagulation and in view of her anemia, we would need to study her GI tract. Hemoccults were negative per the GI resident this morning. The patient states the colonoscopy was done just a year ago and she is scheduled for an endoscopy as an outpatient with Dr. Thibodeaux in the near future, so I will plan from here and discharge home will be depended on conversations with consultants involved. Later in the day, I spoke with Dr. Givens. He agrees that the AFib is probably paroxysmal related to dehydration and electrolytes and not likely to return. Therefore, the patient does not need long-term anticoagulation. Later in the day, I spoke with Dr. Thibodeaux, the gastrointestinal benefits consultant, the colonoscopy done almost a year ago was an incomplete study with tortuous colon. It is not likely that repeat colonoscopy would be more successful, so CT scan of the abdomen was performed, which would be adequate. She was scheduled for an endoscopy as an outpatient, but that will need to be done now as an inpatient, in view of her current symptoms of reflux and epigastric indigestion pain symptoms. So, she is essentially cleared from the Cardiology standpoint. We will repeat labs in the morning. She will be scheduled for endoscopy tomorrow with plan for discharge to home likely after that. Tj Quispe MD [facility] # [phone]
[2018-03-25 07:06] LABS: HEMOGLOBIN 9.2 g/dL (12.0-16.0); MEAN CELL VOLUME 86.5 fl (80.0-105.0); MEAN CORPUSCULAR HEMOGLOBIN 28.1 pg (25.0-35.0); MEAN CORPUSCULAR HGB CONC 32.5 g/dl (31.0-37.0); MEAN PLATELET VOLUME 8.7 fl (7.0-11.0); RBC 3.27 10^6/uL (3.5-6.1); RED CELL DISTRIBUTION WIDTH 13.9 % (11.5-14.5); WHITE BLOOD COUNT 6.5 10^3/ul (4.5-11.0)
[2018-03-25 07:14] LABS: ALB/GLOB RATIO 1.2 (1.1-1.8); ALBUMIN 3.3 g/dL (3.0-4.8); CALCIUM 8.1 mg/dL (8.4-10.5)
--- NOTE | 2018-03-25 07:31 | CP.PCM.PN ---
Subjective - Date & Time of Evaluation Date of Evaluation: 03/25/18 Time of Evaluation: 06:30 - Subjective Subjective: awake, alert, no distress Reason for consultation and follow up: Cardiac evaluation for new onset Atrial fibrillation, history of hypertension, chronic kidney disease. Seen and examined by me and Dr. Givens Objective - Vital Signs/Intake and Output Vital Signs (last 24 hours): Temp Pulse Resp BP Pulse Ox 98.6 F 67 20 162/85 H 94 L 03/25/18 06:00 03/25/18 06:00 03/25/18 06:00 03/25/18 06:00 03/25/18 06:00 Intake and Output: 03/25/18 03/25/18 06:59 18:59 Intake Total 300 Output Total 400 Balance -100 - Medications Medications: Current Medications Amlodipine Besylate (Norvasc) 10 mg PO DAILY [facility] Last Admin: 03/24/18 10:21 Dose: 10 mg Aspirin (Ecotrin) 81 mg PO DAILY [facility] Clonidine HCl (Catapres) 0.1 mg PO BID [facility] Last Admin: 03/24/18 18:36 Dose: 0.1 mg Diltiazem HCl (Cardizem Cd) 120 mg PO DAILY [facility] Last Admin: 03/24/18 13:58 Dose: 120 mg Famotidine (Pepcid) 20 mg PO HS [facility] Last Admin: 03/24/18 21:21 Dose: 20 mg Heparin Sodium (Porcine) (Heparin) 5,000 units SC Q8 [facility] PRN Reason: Protocol Last Admin: 03/25/18 05:34 Dose: 5,000 units Iron Sucrose 200 mg/ Sodium (Chloride) 110 mls @ 110 mls/hr IVPB DAILY [facility] Stop: 03/27/18 10:59 Last Admin: 03/24/18 10:20 Dose: 110 mls/hr Levofloxacin (Levaquin) 250 mg PO Q48H [facility] Last Admin: 03/24/18 10:20 Dose: 250 mg Magnesium Oxide (Mag-Ox) 400 mg PO DAILY [facility] Last Admin: 03/24/18 10:29 Dose: 400 mg Metoprolol Tartrate (Lopressor) 50 mg PO BID [facility] Last Admin: 03/24/18 18:36 Dose: 50 mg Home Med - Febuxostat [Uloric] 1 Tab 1 tab PO DAILY [facility] Last Admin: 03/24/18 11:54 Dose: Not Given Ondansetron HCl (Zofran Odt) 4 mg PO QID PRN PRN Reason: NAUSEA/VOMITING Polysaccharide Iron Complex (Ferrex-150) 150 mg PO DAILY [facility] Last Admin: 03/24/18 10:19 Dose: 150 mg Tramadol HCl (Ultram) 50 mg PO BID PRN PRN Reason: Pain, moderate (4-7) - Labs Labs: 03/25/18 06:30 03/25/18 06:30 PT 12.8 SECONDS (9.4-12.5) H 03/20/18 15:45 INR 1.12 03/20/18 15:45 APTT 34.6 Seconds (25.1-36.5) 03/20/18 15:45 - Constitutional Appears: No Acute Distress - Eye Exam Eye Exam: Normal appearance - ENT Exam ENT Exam: Mucous Membranes Moist - Respiratory Exam Respiratory Exam: Decreased Breath Sounds, Clear to Ausculation Bilateral, NORMAL BREATHING PATTERN - Cardiovascular Exam Cardiovascular Exam: REGULAR RHYTHM, +S1, +S2 - GI/Abdominal Exam GI & Abdominal Exam: Soft, Normal Bowel Sounds - Extremities Exam Extremities Exam: Normal Capillary Refill - Neurological Exam Neurological Exam: Alert, Awake, Oriented x3 - Psychiatric Exam Psychiatric exam: Normal Affect - Skin Skin Exam: Dry, Intact, Warm Assessment and Plan - Assessment and Plan (Free Text) Assessment: A 77 year old female who came in to the ER due to weakness for five days with fever with nausea. Cardiac consult was called due to onset atrial fibrillation. History of chronic kidney disease,hypertension,gout,right leg surgery. Urinalysis positive for infection (E. coli) Given IV cardizem for atrial fibrillation and now discontinued and on normal sinus rhythm. Echo showed LVEF 61%, moderate AR/TR,pulmonary hypertension, cannot exclude aortic valvular vegetation. Blood cultures negative x 2. No need for anticoagulation at this time, Started on oral cardizem to prevent from going back to Afib. GI on consult and work up on going due to anemia. Plan: For EGD today GI on consult Cardiac status stable, Remained normal sinus rhythm-70's Blood pressure and heart rate controlled Continue antibiotics for UTI On Norvasc 10 mg daily,ASA 81 mg daily,Clonidine 0.1 mg BID, Lopressor 50 mg BID,Cardizem 120 mg daily, Continue current treatment Continue current medications Will follow up Plan and treatment discussed with Dr. Givens
[2018-03-25] MEDS ORDERED: diltiaZEM 120 mg/24 Hours CD Cap PO SCH (10:00)
[2018-03-25 10:43] LABS: INR 1.05; PROTHROMBIN TIME 12.1 SECONDS (9.4-12.5)
[2018-03-25 10:46] LABS: PARTIAL THROMBOPLASTIN TIME 39.8 Seconds (25.1-36.5)
[2018-03-25] MEDS ORDERED: Digoxin 500 mcg/2ml (0.5 mg/2ml) Inj IVP STA (10:46)
[2018-03-25] MEDS: Magnesium Oxide 400 mg Tab UD PO SCH (11:55)
[2018-03-25] MEDS: FEBUXOSTAT PO SCH (11:56)
[2018-03-25] MEDS: Iron Complex Polysacch 150mg Cap PO SCH (11:56)
[2018-03-25 11:58] VITALS: PULSE 107
[2018-03-25] MEDS: diltiaZEM 120 mg/24 Hours CD Cap PO SCH (11:58)
--- NOTE | 2018-03-25 14:32 | PN ---
Copied To: Baltazar Phillips MD Attending MD: Baltazar Phillips MD ADDENDUM DATE: 03/25/2018 LOCATION: The patient is in room 270, bed 2. REASON FOR ADDENDUM: Atrial fibrillation. SUBJECTIVE: This morning, the patient went again into atrial flutter, rate around 140 per minute. The patient was given verapamil 2.5 mg IV stat and digoxin 0.25 IV stat. She also received her Cardizem and Lopressor p.o. The patient's heart rate after that is staying in the 70, but still atrial flutter/fibrillation. The patient is going for endoscopy today. She scan go for endoscopy from cardiac point of view. After she come back from endoscopy, we will start her on Eliquis 2.5 b.i.d. because her creatinine is elevated. In the meantime, the patient was asymptomatic during the rapid heartbeat. She denies any chest pain, shortness of breath, palpitation. We will increase her Cardizem CD 120 p.o. daily, which she received today to 180 p.o. daily starting tomorrow. Today, she also received IV verapamil and digoxin. Baltazar Phillips MD
--- NOTE | 2018-03-25 17:49 | CP.PCM.PN ---
<Ritchie Martins - Last Filed: 03/25/18 17:46> Subjective - Date & Time of Evaluation Date of Evaluation: 03/25/18 Time of Evaluation: 06:45 - Subjective Subjective: Patient seen and examined at bedside in no acute distress. States she slept well overnight without any issues. Inquired about findings of her test. Denies abdominal pain, n/v/d, fevers, chills, cough, headache, chest pain, palpitations , shortness of breath. Objective - Vital Signs/Intake and Output Vital Signs (last 24 hours): Temp Pulse Resp BP Pulse Ox 98.5 F 87 18 162/85 H 94 L 03/25/18 12:00 03/25/18 17:42 03/25/18 12:00 03/25/18 17:42 03/25/18 06:00 Intake and Output: 03/25/18 03/25/18 06:59 18:59 Intake Total 300 Output Total 400 Balance -100 - Medications Medications: Current Medications Amlodipine Besylate (Norvasc) 10 mg PO DAILY [facility] Last Admin: 03/24/18 10:21 Dose: 10 mg Aspirin (Ecotrin) 81 mg PO DAILY [facility] Clonidine HCl (Catapres) 0.1 mg PO BID [facility] Last Admin: 03/25/18 17:42 Dose: 0.1 mg Diltiazem HCl (Cardizem Cd) 180 mg PO DAILY [facility] Famotidine (Pepcid) 20 mg PO HS [facility] Last Admin: 03/24/18 21:21 Dose: 20 mg Heparin Sodium (Porcine) (Heparin) 5,000 units SC Q8 [facility] PRN Reason: Protocol Last Admin: 03/25/18 14:54 Dose: 5,000 units Iron Sucrose 200 mg/ Sodium (Chloride) 110 mls @ 110 mls/hr IVPB DAILY [facility] Stop: 03/27/18 10:59 Last Admin: 03/25/18 11:48 Dose: 110 mls/hr Levofloxacin (Levaquin) 250 mg PO Q48H [facility] Last Admin: 03/24/18 10:20 Dose: 250 mg Magnesium Oxide (Mag-Ox) 400 mg PO DAILY [facility] Last Admin: 03/25/18 11:55 Dose: 400 mg Metoprolol Tartrate (Lopressor) 50 mg PO BID [facility] Last Admin: 08/08/18 17:41 Dose: 50 mg Home Med - Febuxostat [Uloric] 1 Tab 1 tab PO DAILY [facility] Last Admin: 03/25/18 11:56 Dose: Not Given Ondansetron HCl (Zofran Odt) 4 mg PO QID PRN PRN Reason: NAUSEA/VOMITING Polysaccharide Iron Complex (Ferrex-150) 150 mg PO DAILY [facility] Last Admin: 03/25/18 11:56 Dose: 150 mg Tramadol HCl (Ultram) 50 mg PO BID PRN PRN Reason: Pain, moderate (4-7) - Labs Labs: 03/25/18 06:30 03/25/18 06:30 PT 12.1 SECONDS (9.4-12.5) 03/25/18 10:30 INR 1.05 03/25/18 10:30 APTT 39.8 Seconds (25.1-36.5) H 03/25/18 10:30 - Head Exam Head Exam: ATRAUMATIC, NORMAL INSPECTION, NORMOCEPHALIC - Eye Exam Eye Exam: EOMI, Normal appearance - ENT Exam ENT Exam: Mucous Membranes Moist - Respiratory Exam Respiratory Exam: Clear to Ausculation Bilateral, NORMAL BREATHING PATTERN. absent: Rhonchi, Wheezes - Cardiovascular Exam Cardiovascular Exam: Irregular Rhythm, +S1, +S2 - GI/Abdominal Exam GI & Abdominal Exam: Soft, Normal Bowel Sounds - Extremities Exam Extremities Exam: Pedal Edema (bilateral) - Back Exam Back Exam: NORMAL INSPECTION - Neurological Exam Neurological Exam: Alert, Awake, Oriented x3 - Psychiatric Exam Psychiatric exam: Normal Affect, Normal Mood - Skin Skin Exam: Normal Color, Warm Assessment and Plan - Assessment and Plan (Free Text) Assessment: Patient is a 77 F with history of CKD, gout, and anemia who presented with complaints of lethargy and weakness x 5 days Plan: Anemia r/o GI etiology -CT abdomen/pelvis reveals diverticulosis and cholelithiasis -Upper GI endoscopy to be done as outpatient <Nidhi Thibodeaux V - Last Filed: 03/25/18 18:17> Objective - Vital Signs/Intake and Output Vital Signs (last 24 hours): Temp Pulse Resp BP Pulse Ox 98.5 F 87 18 162/85 H 94 L 03/25/18 12:00 03/25/18 17:42 03/25/18 12:00 03/25/18 17:42 03/25/18 06:00 Intake and Output: 03/25/18 03/25/18 06:59 18:59 Intake Total 300 Output Total 400 Balance -100 - Medications Medications: Current Medications Amlodipine Besylate (Norvasc) 10 mg PO DAILY [facility] Last Admin: 03/24/18 10:21 Dose: 10 mg Aspirin (Ecotrin) 81 mg PO DAILY [facility] Clonidine HCl (Catapres) 0.1 mg PO BID [facility] Last Admin: 03/25/18 17:42 Dose: 0.1 mg Diltiazem HCl (Cardizem Cd) 180 mg PO DAILY [facility] Famotidine (Pepcid) 20 mg PO HS [facility] Last Admin: 03/24/18 21:21 Dose: 20 mg Heparin Sodium (Porcine) (Heparin) 5,000 units SC Q8 [facility] PRN Reason: Protocol Last Admin: 03/25/18 14:54 Dose: 5,000 units Iron Sucrose 200 mg/ Sodium (Chloride) 110 mls @ 110 mls/hr IVPB DAILY [facility] Stop: 03/27/18 10:59 Last Admin: 03/25/18 11:48 Dose: 110 mls/hr Levofloxacin (Levaquin) 250 mg PO Q48H [facility] Last Admin: 03/24/18 10:20 Dose: 250 mg Magnesium Oxide (Mag-Ox) 400 mg PO DAILY [facility] Last Admin: 03/25/18 11:55 Dose: 400 mg Metoprolol Tartrate (Lopressor) 50 mg PO BID [facility] Last Admin: 03/25/18 17:41 Dose: 50 mg Home Med - Febuxostat [Uloric] 1 Tab 1 tab PO DAILY [facility] Last Admin: 03/25/18 11:56 Dose: Not Given Ondansetron HCl (Zofran Odt) 4 mg PO QID PRN PRN Reason: NAUSEA/VOMITING Polysaccharide Iron Complex (Ferrex-150) 150 mg PO DAILY [facility] Last Admin: 03/25/18 11:56 Dose: 150 mg Tramadol HCl (Ultram) 50 mg PO BID PRN PRN Reason: Pain, moderate (4-7) - Labs Labs: 03/25/18 06:30 03/25/18 06:30 PT 12.1 SECONDS (9.4-12.5) 03/25/18 10:30 INR 1.05 03/25/18 10:30 APTT 39.8 Seconds (25.1-36.5) H 03/25/18 10:30 Attending/Attestation - Attestation I have personally seen and examined this patient.: Yes I have fully participated in the care of the patient.: Yes I have reviewed all pertinent clinical information, including history, physical exam and plan: Yes Notes (Text): This is an addendum to GI consult report dictated by the Cargo Inspector.The patient was seen and evaluated earlier. Medical records, lab studies, imagings were reviewed. Last 24 hours events reviewed. Agreed with the above treatment plan as outlined in Cargo Inspector 's notes with the addition of the following Discussed with PCP Discussed with the anesthesiologist, EGD was canceled pending optimization of cardiac status for the procedure as per the anesthesiologist. Fluctuating heart rate now being controlled Advance the diet EGD as an outpatient Discussed with the patient 03/25/18 18:14
--- NOTE | 2018-03-25 19:22 | PN ---
Copied To: Sera Currie MD Attending MD: Sera Currie MD DATE: 03/25/2018 SUBJECTIVE: The patient is seen, sitting in bed. She is awake, she is alert, she is comfortable. She reports she is feeling better today. She denies any pain. PHYSICAL EXAMINATION: GENERAL: Obese elderly lady sitting in bed. VITAL SIGNS: Blood pressure 151/84, heart rate 125, respiratory rate 18, and temperature 98.5. HEENT: Normocephalic, atraumatic, positive pallor. NECK: Supple, no JVD. LUNGS: Bilateral equal air entry, bilateral equal expansion, no rales. CARDIAC: S1 and S2, regular rate and rhythm, no murmur, no rub. ABDOMEN: Obese, distended, soft, nontender, bowel sounds present. EXTREMITIES: No lower extremity edema. INTAKE AND OUTPUT: 300/400 LABORATORY DATA: WBC 6.5, hemoglobin 9.2, hematocrit 28, and platelets 437. Sodium 142, potassium 3.9, chloride 109, CO2 of 21. BUN 23, creatinine 1.6. Glucose 88. Calcium 8.1, phosphorus 3.6, and magnesium 1.9. Urine culture, E-coli. CURRENT MEDICATIONS: List reviewed. ASSESSMENT: 1. Acute kidney injury, largely prerenal azotemia, resolving. 2. Underlying chronic kidney disease stage III. 3. History of anemia. 4. History of gout. 5. History of hypertension. 6. Obesity. PLAN: 1. Push p.o. fluids. 2. Continue antibiotics for UTI. 3. Continue Venofer while she is in the hospital. 4. Follow up as outpatient. Sera Currie MD
--- NOTE | 2018-03-26 09:40 | CP.PCM.PN ---
<Ritchie Martins - Last Filed: 03/26/18 12:58> Subjective - Date & Time of Evaluation Date of Evaluation: 03/26/18 Time of Evaluation: 09:39 - Subjective Subjective: Patient seen and examined at bedside in no acute distress. Denies abdominal pain , dysphagia, nausea, vomiting, diarrhea, shortness of breath, chest pain, headache, cough, weakness, dizziness, fevers, chills. Objective - Vital Signs/Intake and Output Vital Signs (last 24 hours): Temp Pulse Resp BP Pulse Ox 98.6 F 78 20 143/68 97 03/26/18 06:00 03/26/18 06:00 03/26/18 06:00 03/26/18 06:00 03/26/18 06:00 - Medications Medications: Current Medications Amlodipine Besylate (Norvasc) 10 mg PO DAILY [facility] Last Admin: 03/24/18 10:21 Dose: 10 mg Aspirin (Ecotrin) 81 mg PO DAILY [facility] Clonidine HCl (Catapres) 0.1 mg PO BID [facility] Last Admin: 03/25/18 17:42 Dose: 0.1 mg Diltiazem HCl (Cardizem Cd) 180 mg PO DAILY [facility] Famotidine (Pepcid) 20 mg PO HS [facility] Last Admin: 03/25/18 23:27 Dose: 20 mg Heparin Sodium (Porcine) (Heparin) 5,000 units SC Q8 [facility] PRN Reason: Protocol Last Admin: 03/26/18 06:06 Dose: 5,000 units Iron Sucrose 200 mg/ Sodium (Chloride) 110 mls @ 110 mls/hr IVPB DAILY [facility] Stop: 03/27/18 10:59 Last Admin: 03/25/18 11:48 Dose: 110 mls/hr Levofloxacin (Levaquin) 250 mg PO Q48H [facility] Last Admin: 03/24/18 10:20 Dose: 250 mg Magnesium Oxide (Mag-Ox) 400 mg PO DAILY [facility] Last Admin: 03/25/18 11:55 Dose: 400 mg Metoprolol Tartrate (Lopressor) 50 mg PO BID [facility] Last Admin: 03/25/18 17:41 Dose: 50 mg Home Med - Febuxostat [Uloric] 1 Tab 1 tab PO DAILY [facility] Last Admin: 03/25/18 11:56 Dose: Not Given Ondansetron HCl (Zofran Odt) 4 mg PO QID PRN PRN Reason: NAUSEA/VOMITING Polysaccharide Iron Complex (Ferrex-150) 150 mg PO DAILY [facility] Last Admin: 03/25/18 11:56 Dose: 150 mg Tramadol HCl (Ultram) 50 mg PO BID PRN PRN Reason: Pain, moderate (4-7) - Labs Labs: 03/25/18 06:30 03/25/18 06:30 PT 12.1 SECONDS (9.4-12.5) 03/25/18 10:30 INR 1.05 03/25/18 10:30 APTT 39.8 Seconds (25.1-36.5) H 03/25/18 10:30 - Head Exam Head Exam: ATRAUMATIC, NORMAL INSPECTION, NORMOCEPHALIC - Eye Exam Eye Exam: EOMI, Normal appearance - ENT Exam ENT Exam: Mucous Membranes Moist - Respiratory Exam Respiratory Exam: Clear to Ausculation Bilateral, NORMAL BREATHING PATTERN. absent: Rhonchi, Wheezes - Cardiovascular Exam Cardiovascular Exam: +S1, +S2 - GI/Abdominal Exam GI & Abdominal Exam: Soft, Normal Bowel Sounds. absent: Distended, Firm, Tenderness, Organomegaly - Back Exam Back Exam: NORMAL INSPECTION - Neurological Exam Neurological Exam: Alert, Awake, Oriented x3 - Psychiatric Exam Psychiatric exam: Normal Affect, Normal Mood - Skin Skin Exam: Normal Color, Warm Assessment and Plan - Assessment and Plan (Free Text) Assessment: Patient is a 77 F with history of CKD, gout, and anemia who presented with complaints of lethargy and weakness x 5 days Plan: Anemia r/o GI etiology -CT abdomen/pelvis reveals diverticulosis and cholelithiasis -Patient tolerating diet advancement -Upper GI endoscopy as outpatient <Nidhi Thibodeaux V - Last Filed: 03/26/18 22:47> Objective - Vital Signs/Intake and Output Vital Signs (last 24 hours): Temp Pulse Resp BP Pulse Ox 97.6 F 71 20 186/76 H 97 03/26/18 18:00 03/26/18 18:00 03/26/18 18:00 03/26/18 21:07 03/26/18 06:00 Intake and Output: 03/26/18 03/27/18 18:59 06:59 Intake Total 1780 Balance 1780 - Medications Medications: Current Medications Apixaban (Eliquis) 2.5 mg PO BID [facility] PRN Reason: Protocol Last Admin: 03/26/18 18:16 Dose: 2.5 mg Aspirin (Ecotrin) 81 mg PO DAILY [facility] Last Admin: 03/26/18 10:03 Dose: 81 mg Clonidine HCl (Catapres) 0.1 mg PO BID [facility] Last Admin: 03/26/18 17:36 Dose: 0.1 mg Diltiazem HCl (Cardizem Cd) 180 mg PO DAILY [facility] Last Admin: 03/26/18 09:55 Dose: 180 mg Famotidine (Pepcid) 20 mg PO HS [facility] Last Admin: 03/26/18 21:08 Dose: 20 mg Iron Sucrose 200 mg/ Sodium (Chloride) 110 mls @ 110 mls/hr IVPB DAILY [facility] Stop: 03/27/18 10:59 Last Admin: 03/26/18 17:51 Dose: 110 mls/hr Levofloxacin (Levaquin) 250 mg PO Q48H [facility] Last Admin: 03/26/18 10:00 Dose: 250 mg Magnesium Oxide (Mag-Ox) 400 mg PO DAILY [facility] Last Admin: 03/26/18 09:58 Dose: 400 mg Metoprolol Tartrate (Lopressor) 50 mg PO BID [facility] Last Admin: 03/26/18 17:24 Dose: 50 mg Home Med - Febuxostat [Uloric] 1 Tab 1 tab PO DAILY [facility] Last Admin: 03/26/18 16:04 Dose: Not Given Ondansetron HCl (Zofran Odt) 4 mg PO QID PRN PRN Reason: NAUSEA/VOMITING Polysaccharide Iron Complex (Ferrex-150) 150 mg PO DAILY [facility] Last Admin: 03/26/18 10:00 Dose: 150 mg Tramadol HCl (Ultram) 50 mg PO BID PRN PRN Reason: Pain, moderate (4-7) - Labs Labs: 03/26/18 12:30 03/26/18 12:30 PT 12.1 SECONDS (9.4-12.5) 03/25/18 10:30 INR 1.05 03/25/18 10:30 APTT 39.8 Seconds (25.1-36.5) H 03/25/18 10:30 Attending/Attestation - Attestation I have personally seen and examined this patient.: Yes I have fully participated in the care of the patient.: Yes I have reviewed all pertinent clinical information, including history, physical exam and plan: Yes Notes (Text): yu 03/26/18 22:47
--- NOTE | 2018-03-26 09:47 | PN ---
Copied To: Tj Quispe MD Attending MD: Tj Quispe MD DATE: 03/25/2018 Patient was seen this Friday afternoon in room 270, bed 2. There were no visitors present. Unfortunately, she went back into atrial fibrillation with rapid ventricular response earlier this morning. She was treated with IV digoxin and IV . She was seen by Anesthesiology. Endoscopy was canceled. Cardiology is aware. Later in the day, I spoke with Dr. Thibodeaux about the endoscopy and anesthesia, the new AFib and that will be canceled. I also spoke with Dr. Givens, the precision jig grinder, regarding her rate. We will begin Eliquis and continue anticoagulation. Monitor her rate for stabilization and control of the rhythm, watch for spontaneous cardioversion and consider completing his workup with endoscopy as an outpatient especially if serial H and H begins to fall. Tj Quispe MD
[2018-03-26] MEDS: diltiaZEM 180 mg/24 Hours CD Cap PO SCH (09:55)
[2018-03-26] MEDS: Magnesium Oxide 400 mg Tab UD PO SCH (09:58)
[2018-03-26] MEDS: Iron Complex Polysacch 150mg Cap PO SCH (10:00)
--- NOTE | 2018-03-26 10:06 | CP.PCM.PN ---
Subjective - Date & Time of Evaluation Date of Evaluation: 03/26/18 Time of Evaluation: 06:55 - Subjective Subjective: no distress, awake,alert Reason for consultation and follow up: Cardiac evaluation for new onset Atrial fibrillation, history of hypertension, chronic kidney disease. Seen and examined by me and Dr. Givens Objective - Vital Signs/Intake and Output Vital Signs (last 24 hours): Temp Pulse Resp BP Pulse Ox 98.6 F 96 H 20 159/100 H 97 03/26/18 06:00 03/26/18 09:56 03/26/18 06:00 03/26/18 09:56 03/26/18 06:00 - Medications Medications: Current Medications Amlodipine Besylate (Norvasc) 10 mg PO DAILY [facility] Last Admin: 03/24/18 10:21 Dose: 10 mg Aspirin (Ecotrin) 81 mg PO DAILY [facility] Clonidine HCl (Catapres) 0.1 mg PO BID [facility] Last Admin: 03/25/18 17:42 Dose: 0.1 mg Diltiazem HCl (Cardizem Cd) 180 mg PO DAILY [facility] Last Admin: 03/26/18 09:55 Dose: 180 mg Famotidine (Pepcid) 20 mg PO HS [facility] Last Admin: 03/25/18 23:27 Dose: 20 mg Heparin Sodium (Porcine) (Heparin) 5,000 units SC Q8 [facility] PRN Reason: Protocol Last Admin: 03/26/18 06:06 Dose: 5,000 units Iron Sucrose 200 mg/ Sodium (Chloride) 110 mls @ 110 mls/hr IVPB DAILY [facility] Stop: 03/27/18 10:59 Last Admin: 03/25/18 11:48 Dose: 110 mls/hr Levofloxacin (Levaquin) 250 mg PO Q48H [facility] Last Admin: 03/26/18 10:00 Dose: 250 mg Magnesium Oxide (Mag-Ox) 400 mg PO DAILY [facility] Last Admin: 03/26/18 09:58 Dose: 400 mg Metoprolol Tartrate (Lopressor) 50 mg PO BID [facility] Last Admin: 03/26/18 09:56 Dose: 50 mg Home Med - Febuxostat [Uloric] 1 Tab 1 tab PO DAILY [facility] Last Admin: 03/25/18 11:56 Dose: Not Given Ondansetron HCl (Zofran Odt) 4 mg PO QID PRN PRN Reason: NAUSEA/VOMITING Polysaccharide Iron Complex (Ferrex-150) 150 mg PO DAILY [facility] Last Admin: 03/26/18 10:00 Dose: 150 mg Tramadol HCl (Ultram) 50 mg PO BID PRN PRN Reason: Pain, moderate (4-7) - Labs Labs: 03/25/18 06:30 03/25/18 06:30 PT 12.1 SECONDS (9.4-12.5) 03/25/18 10:30 INR 1.05 03/25/18 10:30 APTT 39.8 Seconds (25.1-36.5) H 03/25/18 10:30 - Constitutional Appears: No Acute Distress - Head Exam Head Exam: NORMOCEPHALIC - Eye Exam Eye Exam: Normal appearance - ENT Exam ENT Exam: Mucous Membranes Moist - Respiratory Exam Respiratory Exam: Decreased Breath Sounds, Clear to Ausculation Bilateral, NORMAL BREATHING PATTERN - Cardiovascular Exam Cardiovascular Exam: REGULAR RHYTHM, +S1, +S2 Additional comments: NSR 60-70's - GI/Abdominal Exam GI & Abdominal Exam: Soft, Normal Bowel Sounds - Extremities Exam Extremities Exam: Normal Capillary Refill - Neurological Exam Neurological Exam: Alert, Awake, Oriented x3 - Psychiatric Exam Psychiatric exam: Normal Affect - Skin Skin Exam: Dry, Warm Assessment and Plan - Assessment and Plan (Free Text) Assessment: A 77 year old female who came in to the ER due to weakness for five days with fever with nausea. Cardiac consult was called due to onset atrial fibrillation. History of chronic kidney disease,hypertension,gout,right leg surgery. Urinalysis positive for infection (E. coli) Given IV cardizem for atrial fibrillation and now discontinued and on normal sinus rhythm. Echo showed LVEF 61%, moderate AR/TR,pulmonary hypertension, cannot exclude aortic valvular vegetation. Blood cultures negative x 2. No need for anticoagulation at this time, Started on oral cardizem to prevent from going back to Afib. GI on consult and work up on going due to anemia. Plan: Has episode of rapid Afib yesterday about 140's Given IV Digoxin and IV Verapamil, converted to NSR EGD cancelled and will be done as out patient per GI Will start Eliquis for Afib 2.5 mg BID, low dose due to renal insufficiency Cardizem dose increased Telemetry NSR 60-70's Blood pressure controlled Continue antibiotics for UTI On Norvasc 10 mg daily,ASA 81 mg daily,Clonidine 0.1 mg BID, Lopressor 50 mg BID,Cardizem 180 mg daily, Continue current treatment Continue current medications Will follow up Plan and treatment discussed with Dr. Givens
[2018-03-26 12:43] LABS: BASO # 0.13 K/mm3 (0.0-2.0); BASO % 2.1 % (0.0-3.0); EOS # 0.2 (0.0-0.7); EOS % 3.5 % (1.5-5.0); GRAN # 4.52 (1.4-6.5); GRAN % 71.4 % (50.0-68.0); HEMOGLOBIN 9.6 g/dL (12.0-16.0); LYMPH # 0.9 (1.2-3.4); LYMPH % 14.2 % (22.0-35.0); MEAN CELL VOLUME 88.5 fl (80.0-105.0); MEAN CORPUSCULAR HEMOGLOBIN 28.4 pg (25.0-35.0); MEAN CORPUSCULAR HGB CONC 32.1 g/dl (31.0-37.0); MONO # 0.6 (0.1-0.6); MONO % 8.8 % (1.0-6.0); RBC 3.38 10^6/uL (3.5-6.1); WHITE BLOOD COUNT 6.3 10^3/ul (4.5-11.0)
[2018-03-26 12:57] LABS: ALB/GLOB RATIO 1.2 (1.1-1.8); ALBUMIN 3.5 g/dL (3.0-4.8); CALCIUM 8.3 mg/dL (8.4-10.5)
--- NOTE | 2018-03-26 15:31 | PN ---
Copied To: Sera Currie MD Attending MD: Sera Currie MD DATE: 03/26/2018 SUBJECTIVE: The patient is seen lying in bed. She is awake. She is alert. She is comfortable. She denies any pain. She denies any shortness of breath. PHYSICAL EXAMINATION: GENERAL: Obese elderly lady, lying in bed. VITAL SIGNS: Blood pressure 144/81, heart rate 74, respiratory rate 18, temperature 98.2. HEENT: Normocephalic, atraumatic, positive pallor. NECK: Supple, no JVD. LUNGS: Bilateral equal air entry, bilateral equal expansion. CARDIAC: S1 and S2, regular rate and rhythm, no murmur, no rub. ABDOMEN: Obese, distended, soft, nontender, bowel sounds present. EXTREMITIES: No lower extremity edema. INTAKE AND OUTPUT: 2630/1750. LABORATORY DATA: WBC 6, hemoglobin 9.6, hematocrit 30, platelets 397. Sodium 141, potassium 4.2, chloride 109, CO2 of 23, BUN 20, creatinine 1.5, glucose 122, calcium 8.3, magnesium 1.8. Urine culture, E. coli. CURRENT MEDICATIONS: Cardizem CD, Catapres, Ecotrin, Eliquis, Ferrex 150, Uloric, Venofer 200 mg, Levaquin, Lopressor, mag oxide, amlodipine, Pepcid, tramadol, Zofran. ASSESSMENT: 1. Acute kidney injury, slowly resolving. 2. Underlying chronic kidney disease stage 3. 3. Anemia with low iron stores. PLAN: 1. Continue Venofer IV as long as the patient in the hospital. 2. EGD canceled. This is noted to be done as outpatient. 3. The patient is stable from the renal standpoint. 4. Outpatient followup with Nephrology as needed. Sera Currie MD
[2018-03-26] MEDS: FEBUXOSTAT PO SCH (16:04)
--- NOTE | 2018-03-26 18:23 | CARD ---
APPROVED REPORT Date of service: 03/26/2018 EKG Measurement Heart [id number] <Conclusion> Normal sinus rhythm Inferior infarct, age undetermined Abnormal ECG
[2018-03-27 00:29] VITALS: RESP 18
[2018-03-27 06:27] VITALS: O2SAT 98
--- NOTE | 2018-03-27 08:33 | PN ---
Copied To: Tj Quispe MD Attending MD: Tj Quispe MD DATE: 03/26/2018 DAILY PROGRESS NOTE SUBJECTIVE: The patient was seen this morning in room 270, bed 1. She appears to be doing well. Although, labs show improvement, especially in her hemoglobin and hematocrit. However, she continues to complain of very unsettled, uneasy feeling and occasional palpitations. I reviewed her telemetry strips with our color technician showing her back in sinus rhythm. The patient feels a bit unsettled with going home because of the recent recurrent episode of AFib and after having conversation with an unidentified woman telling her she would be leaving the hospital that day. Medications reviewed. I spoke with the patient at length and reassured her. She feels discharge to home would be unsafe because of her risk of recurrent AFib and current symptoms of palpitations. Therefore, we will continue to monitor. We will discuss with Cardiology later in the day. Case was discussed with Case Management. We will monitor for 24 more hours and probable discharge tomorrow. Tj Quispe MD MTD[facility]on
[2018-03-27] MEDS: diltiaZEM 180 mg/24 Hours CD Cap PO SCH (10:01)
[2018-03-27] MEDS: Iron Complex Polysacch 150mg Cap PO SCH (10:02)
[2018-03-27] MEDS: Magnesium Oxide 400 mg Tab UD PO SCH (10:03)
[2018-03-27] MEDS: FEBUXOSTAT PO SCH (11:24)
[2018-03-27 11:49] VITALS: BP 141/78; PULSE 78; TEMP 98
--- NOTE | 2018-03-27 12:20 | PN ---
Copied To: Sera Currie MD Attending MD: Sera Currie MD DATE: 03/27/2018 SUBJECTIVE: The patient is seen lying in bed. She is awake. She is alert and is comfortable. She reports that she is urinating a lot. She denies any chest pain. She denies any palpitations. PHYSICAL EXAMINATION: GENERAL: Obese elderly lady lying in bed. VITAL SIGNS: Blood pressure 156/61, heart rate 87, respiratory rate 18, temperature 98.2. HEENT: Normocephalic, atraumatic, positive pallor. NECK: Supple. No JVD. LUNGS: Bilateral equal air entry, bilateral equal expansion. CARDIAC: S1, S2. Regular rate and rhythm. No murmur, no rub. ABDOMEN: Obese, distended. Soft, nontender. Bowel sounds present. EXTREMITIES: No lower extremity edema. INTAKE AND OUTPUT: 2200/not charted. LABORATORY DATA: No new labs today. CURRENT MEDICATIONS: Cardizem 180, Catapres 0.1 b.i.d., Ecotrin, Eliquis 2.5 b.i.d., oral iron, Uloric, Levaquin, Lopressor 50 b.i.d., magnesium oxide, Pepcid, tramadol, Zofran. ASSESSMENT AND PLAN: 1. Acute kidney injury and largely prerenal azotemia, nicely resolving. 2. Stable chronic kidney disease stage III. 3. Anemia with low iron stores. 4. Gout. 5. Hypertension. PLAN: 1. Venofer for total of 1 g as long as the patient is in the hospital. 2.. Avoid nephrotoxins. 3. Outpatient followup. Sera Currie MD
--- NOTE | 2018-03-27 12:32 | PN ---
Copied To: Baltazar Givens MD Attending MD: Baltazar Givens MD DATE: 03/27/2018 REASON FOR THE CONSULTATION AND FOLLOWUP: Cardiac evaluation, history of hypertension, chronic kidney disease, paroxysmal atrial fibrillation. SUBJECTIVE: The patient denies any chest pain, shortness of breath or any palpitation. Wanted to go home. PHYSICAL EXAMINATION: VITAL SIGNS: Temperature afebrile, heart rate 87, blood pressure 156/81. HEENT: PERRLA. Extraocular muscles intact. NECK: Supple. No carotid bruit. No thyromegaly. CHEST: Clear to auscultation. HEART: S1 and S2 regular. ABDOMEN: Soft. EXTREMITIES: Clubbing and cyanosis negative. LABORATORY DATA: Blood workup as follows; WBC 6.3, hemoglobin 9.7, hematocrit 29.9, platelet count 397. Chemistry shows sodium 141, potassium 4.2, chloride 109, carbon dioxide 20, anion gap of 14, BUN 20, creatinine 1.5. IMPRESSION: This is a 77-year-old female with past medical history significant for hypertension admitted with generalized weakness, found to be in atrial fibrillation, urinary tract infection, Cardizem converted to normal sinus. With low hemoglobin and hematocrit, the patient is going for endoscopy before the patient went back again to atrial fibrillation. The patient's recent echocardiogram shows ejection fraction of 61%, moderate aortic regurgitation and tricuspid regurgitation, pulmonary hypertension. Echo reviewed. No evidence of vegetation. Blood cultures were negative. The patient converted to normal sinus, started on Eliquis because of the paroxysmal atrial fibrillation. Currently, the patient is on Cardizem CD 180 mg and clonidine 0.1 p.o. b.i.d. Baseline renal insufficiency. The patient is taking metoprolol 50 b.i.d. as well. We will follow with you. We will continue Cardizem CD as mentioned 180 mg. Continue clonidine. Possible discharge today. Thank you, Dr. Quispe, for providing us the opportunity in taking care of the patient, Jyoti Jordanevettemartha. We will follow with you. Baltazar Givens MD [facility] # [id number]
--- NOTE | 2018-03-27 20:49 | CARD ---
APPROVED REPORT Date of service: 03/27/2018 EKG Measurement Heart [id number] [id number] <Conclusion> Normal sinus rhythm Cannot rule out Inferior infarct, age undetermined Abnormal ECG
--- NOTE | 2018-03-29 16:38 | DS ---
Copied To: Tj Quispe MD Attending MD: Tj Quispe MD HISTORY OF PRESENT ILLNESS: This is a 77-year-old woman I have known for many years with history of hypertension and mild renal insufficiency, who presented to the emergency room on 03/20/2018, in the evening after a 5-day history of abdominal symptoms and diarrhea, for which she was treated as an outpatient with oral Flagyl. The diarrhea subsided, but she was weak and came to the emergency room. In the ER, her BUN was found to be slightly elevated from baseline at 1.5 to 1.8 up into the range of 3. She was treated with IV fluids and admitted. Renal consultation with Dr. Ca was called as he has known her from the past. The patient was hydrated, did well, seems to improve clinically, and on Friday while discharge plans were being entertained by the staff, she went into AFib. She was treated with IV diltiazem, started on digoxin, seen by chain sales consultant, Dr. Eagle, covering for Dr. Phillips and Dr. Givens. She is spontaneously converted back to sinus rhythm. We monitored her and the next day when again discharge plans were being discussed with the patient, she went back into the AFib once again, the rate was a little better controlled. Medications were further adjusted. Case was reviewed with Cardiology and Renal. She was spontaneously converted to sinus once again and remained stable. We monitored her a little bit longer. Remainder of the workup was unremarkable. With adequate hydration, her hemoglobin stabilized at 9.6 after dipping to as low as 8.4. Her creatinine level was at 1.5 with a BUN of 20 to 23, which is again near her baseline. She was awake, alert, and clear, looking forward going home. Medication prescriptions have already been sent to the drug store by the staff on one of those prior attempts, so I personally reviewed the medications with the patient, spoke to the pharmacy to make the adjustments in medications. A copy of the medication list was given to the patient. I hold the copy in my pocket for the next 72 hours. In case there was question, I was able to explain to her and her son came to pick her up and bring her home. FINAL DISCHARGE DIAGNOSES: 1. Diarrhea, treated as an outpatient with p.o. Flagyl, resulting in #2. 2. Prerenal azotemia with a bump in creatinine to 3. 3. Dehydration as above. 4. Spontaneous, recurrent atrial fibrillation. 5. Long history of hypertension. 6. Renal insufficiency. 7. Anemia. Medications called for the drug store included Eliquis 2.5 mg twice a day, metoprolol 50 mg b.i.d., diltiazem CD 180 mg once a day. She already had amlodipine 10 mg once a day, tramadol for pain, Zofran for nausea, and Uloric for gout once a day. She will continue aspirin 81 mg daily. Stop the metronidazole. At home, she also has furosemide 20 mg to take if her legs are swollen and she will continue the Nexium or Protonix that she has at home. She will stop taking her Exforge and follow up with me in the office in approximately 1 week. Tj Quispe MD
== END 2018-03-27 14:06 | disposition home or self-care (01) | DRG 683 ==
LOC: ED 15:30 → ERH 18:31 → 2RSO 22:19
PROVIDERS: ADMIT Internal Medicine; ATTEND Internal Medicine
DX: N17.9 Acute kidney failure, unspecified (principal); A09 Infectious gastroenteritis and colitis, unspecified; E87.2 Acidosis; I13.0 Hypertensive heart and chronic kidney disease with heart failure and stage 1 through stage 4 chronic kidney disease, or unspecified chronic kidney disease; I48.92 Unspecified atrial flutter; N39.0 Urinary tract infection, site not specified; N18.4 Chronic kidney disease, stage 4 (severe); N27.1 Small kidney, bilateral; I87.8 Other specified disorders of veins; B96.20 Unspecified Escherichia coli [E. coli] as the cause of diseases classified elsewhere; D50.9 Iron deficiency anemia, unspecified; D63.1 Anemia in chronic kidney disease; E66.9 Obesity, unspecified; E78.00 Pure hypercholesterolemia, unspecified; E86.0 Dehydration; F17.210 Nicotine dependence, cigarettes, uncomplicated; I27.20 Pulmonary hypertension, unspecified; I08.2 Rheumatic disorders of both aortic and tricuspid valves; I48.0 Paroxysmal atrial fibrillation; I50.9 Heart failure, unspecified; I25.2 Old myocardial infarction; K21.9 Gastro-esophageal reflux disease without esophagitis; M10.9 Gout, unspecified; K57.30 Diverticulosis of large intestine without perforation or abscess without bleeding; K80.20 Calculus of gallbladder without cholecystitis without obstruction; Z79.01 Long term (current) use of anticoagulants; Z79.82 Long term (current) use of aspirin; Z79.899 Other long term (current) drug therapy; Z82.5 Family history of asthma and other chronic lower respiratory diseases; Z87.81 Personal history of (healed) traumatic fracture; Z68.31 Body mass index [BMI] 31.0-31.9, adult

== ENCOUNTER 2018-12-16 07:04 | Outpatient (CLI) | payer MEDICARE, OTHER | END 2018-12-16 07:05 | disposition home or self-care (01) | LOC: CARDIO 07:04 | DX: I10 Essential (primary) hypertension (principal) ==